=== PATIENT | female | born 1960 | race American Indian/Alaskan Native ===

== ENCOUNTER → 2021-01-31 | Outpatient (CLI) | payer MEDICARE, OTHER ==
[~2021-01-31] MED LIST: ALPR.5 PO; BACL10 PO; CELEBREX PO; GABA100 PO; HYDACE5 PO; HYDACE5325 PO; MODA200 PO; OXYACE10 PO
[2021-01-31 17:48] LABS: BASOPHILS ABSOLUTE AUTO 0.04 K/mm3 (0.00-0.23); BASOPHILS PERCENT AUTO 1 % (0-2); EOSINOPHILS ABSOLUTE AUTO 0.09 K/mm3 (0.00-0.68); EOSINOPHILS PERCENT AUTO 1 % (0-6); Hematocrit 38.4 % (33.0-51.0); Hemoglobin 12.7 g/dL (11.5-16.0); IMMATURE GRAN ABSOLUTE AUTO 0.01 K/mm3 (0.00-0.10); IMMATURE GRAN PERCENT AUTO 0 % (0-1); LYMPHOCYTES ABSOLUTE AUTO 1.58 K/mm3 (0.84-5.20); LYMPHOCYTES PERCENT AUTO 25 % (21-46); MONOCYTES ABSOLUTE AUTO 0.36 K/mm3 (0.16-1.47); MONOCYTES PERCENT AUTO 6 % (4-13); Mean Corpuscular HGB 33.2 pg (26.0-34.0); Mean Corpuscular HGB Conc 33.1 g/dL (31.5-36.5); Mean Corpuscular Volume 100 fL (80-100); Mean Platelet Volume 10.8 fL (9.1-12.4); NEUTROPHILS ABSOLUTE AUTO 4.26 K/mm3 (1.96-9.15); NEUTROPHILS PERCENT AUTO 67 % (41-73); Platelet Count 261 K/mm3 (150-400); RDW Coefficient Variation 12.3 % (11.7-14.2); Red Blood Cell Count 3.83 M/mm3 (3.80-5.20); White Blood Cell Count 6.34 K/mm3 (4.00-11.30)
[2021-01-31 18:48] LABS: Alanine Aminotransfer (ALT/SGP 24 U/L (12-78); Albumin, Blood 3.9 g/dL (3.4-5.0); Albumin/Globulin Ratio 1.1 (0.8-1.8); Alk Phos 77 U/L (50-136); Anion Gap 3 mmol/L (6-16); Aspartate Aminotrans (AST/SGOT 12 U/L (12-37); Bilirubin, Total 0.2 mg/dL (0.1-1.0); Blood Urea Nitrogen 11 mg/dL (8-24); Bun/Creatinine Ratio 18.5 (12.0-20.0); CO2, Blood 29 mmol/L (21-32); Calcium, Blood 8.9 mg/dL (8.5-10.1); Chloride, Blood 108 mmol/L (98-108); Globulin, Blood 3.7 g/dL (2.2-4.0); Glomerular Filtration Rate >60 (60-); Glucose, Blood 119 mg/dL (70-99); Potassium, Blood 3.7 mmol/L (3.5-5.5); Sodium, Blood 140 mmol/L (136-145); Total Protein, Blood 7.6 g/dL (6.4-8.2)
[2021-02-01 11:34] LABS: Cholesterol 198 mg/dL (50-200); HDL Cholesterol 49 mg/dL (>39); LDL/HDL RATIO 2.3; Low Density Lipoprotein Chol 111 mg/dL (<110); Triglycerides 191 mg/dL (30-160); Very Low Density Lipoprot Chol 38 mg/dL (6-32)
== END | disposition home or self-care (01) ==
LOC: LAB SHORT 17:25 → LAB EV 17:25
PROVIDERS: Physician Assistant
DX: E55.9 Vitamin D deficiency, unspecified (principal); E78.5 Hyperlipidemia, unspecified; R53.83 Other fatigue
CPT/HCPCS: 80053; 80061; 82306; 83735; 84443; 85025

== ENCOUNTER 2021-07-09 19:54 | Emergency (ER) | payer MEDICARE, OTHER ==
[~2021-07-09] VITALS: Ht 162.6 cm; Wt 72.6 kg
[2021-07-09 20:48] LABS: BASOPHILS ABSOLUTE AUTO 0.04 K/mm3 (0.00-0.23); BASOPHILS PERCENT AUTO 1 % (0-2); EOSINOPHILS ABSOLUTE AUTO 0.09 K/mm3 (0.00-0.68); EOSINOPHILS PERCENT AUTO 1 % (0-6); Hematocrit 34.6 % (33.0-51.0); Hemoglobin 11.4 g/dL (11.5-16.0); IMMATURE GRAN ABSOLUTE AUTO 0.03 K/mm3 (0.00-0.10); IMMATURE GRAN PERCENT AUTO 0 % (0-1); LYMPHOCYTES ABSOLUTE AUTO 1.64 K/mm3 (0.84-5.20); LYMPHOCYTES PERCENT AUTO 21 % (21-46); MONOCYTES ABSOLUTE AUTO 0.68 K/mm3 (0.16-1.47); MONOCYTES PERCENT AUTO 9 % (4-13); Mean Corpuscular HGB 32.5 pg (26.0-34.0); Mean Corpuscular HGB Conc 32.9 g/dL (31.5-36.5); Mean Corpuscular Volume 99 fL (80-100); Mean Platelet Volume 9.5 fL (9.1-12.4); NEUTROPHILS ABSOLUTE AUTO 5.36 K/mm3 (1.96-9.15); NEUTROPHILS PERCENT AUTO 68 % (41-73); Platelet Count 320 K/mm3 (150-400); RDW Coefficient Variation 14.2 % (11.7-14.2); RDW Standard Deviation 51.6 fL (35.1-46.3); Red Blood Cell Count 3.51 M/mm3 (3.80-5.20); White Blood Cell Count 7.84 K/mm3 (4.00-11.30)
[2021-07-09 21:05] LABS: Alanine Aminotransfer (ALT/SGP 26 U/L (12-78); Albumin/Globulin Ratio 0.7 (0.8-1.8); Alk Phos 72 U/L (50-136); Anion Gap 2 mmol/L (6-16); Aspartate Aminotrans (AST/SGOT 14 U/L (12-37); Bilirubin, Total 0.2 mg/dL (0.1-1.0); Blood Urea Nitrogen 12 mg/dL (8-24); Bun/Creatinine Ratio 19.6 (12.0-20.0); CO2, Blood 30 mmol/L (21-32); Calcium, Blood 9.1 mg/dL (8.5-10.1); Chloride, Blood 109 mmol/L (98-108); Creatinine, Blood 0.61 mg/dL (0.40-1.00); Globulin, Blood 4.6 g/dL (2.2-4.0); Glomerular Filtration Rate >60 (60-); Glucose, Blood 118 mg/dL (70-99); Potassium, Blood 3.8 mmol/L (3.5-5.5); Sodium, Blood 141 mmol/L (136-145); Total Protein, Blood 7.6 g/dL (6.4-8.2)
[2021-07-09] MEDS ORDERED: CEPH500 PO (21:26)
== END 2021-07-09 22:48 | disposition home or self-care (01) ==
LOC: ER 19:54
PROVIDERS: Physician Assistant
DX: L03.115 Cellulitis of right lower limb (principal); L03.116 Cellulitis of left lower limb; G62.9 Polyneuropathy, unspecified; Z79.899 Other long term (current) drug therapy
CPT/HCPCS: 36415; 80053; 83605; 85025; 96365; 96366; 99283-25; J2543

== ENCOUNTER 2021-10-23 18:44 | Inpatient (IN) | payer MEDICARE, OTHER ==
[~2021-10-23] VITALS: Ht 162.6 cm; Wt 71.5 kg
[~2021-10-23 18:44] MED LIST changes: +CEPH500 PO; +Mupirocin22 GM TOP; +SULTRISS PO
[2021-10-23 19:52] LABS: Hematocrit 38.3 % (33.0-51.0); Hemoglobin 13.2 g/dL (11.5-16.0); Mean Corpuscular HGB 32.5 pg (26.0-34.0); Mean Corpuscular HGB Conc 34.5 g/dL (31.5-36.5); Mean Corpuscular Volume 94 fL (80-100); Mean Platelet Volume 10.2 fL (9.1-12.4); Platelet Count 237 K/mm3 (150-400); RDW Coefficient Variation 13.7 % (11.7-14.2); RDW Standard Deviation 47.7 fL (35.1-46.3); Red Blood Cell Count 4.06 M/mm3 (3.80-5.20); White Blood Cell Count 23.49 K/mm3 (4.00-11.30)
[2021-10-23 20:11] LABS: BAND PERCENT MAN 27 % (0-8); BASOPHILS PERCENT MAN 0 % (0-2); EOSINOPHILS PERCENT MAN 0 % (0-6); METAMYELOCYTE ABSOLUTE MAN 0.46 K/mm3 (0.00-0.00); METAMYELOCYTE PERCENT MAN 2 % (0-0); MONOCYTES ABSOLUTE MAN 0.23 K/mm3 (0.16-1.47); MONOCYTES PERCENT MAN 1 % (4-13); NEUTROPHILS ABSOLUTE MAN 22.78 K/mm3 (1.96-9.15); SEG NEUTROPHILS PERCENT MAN 70 % (41-73); TOTAL CELLS COUNTED 100
[2021-10-23 20:12] LABS: Alanine Aminotransfer (ALT/SGP 27 U/L (12-78); Albumin, Blood 3.2 g/dL (3.4-5.0); Albumin/Globulin Ratio 0.7 (0.8-1.8); Alk Phos 65 U/L (50-136); Anion Gap 8 mmol/L (6-16); Aspartate Aminotrans (AST/SGOT 28 U/L (12-37); Bilirubin, Total 0.5 mg/dL (0.1-1.0); Blood Urea Nitrogen 24 mg/dL (8-24); Bun/Creatinine Ratio 36.9 (12.0-20.0); CO2, Blood 27 mmol/L (21-32); Calcium, Blood 9.2 mg/dL (8.5-10.1); Chloride, Blood 97 mmol/L (98-108); Creatinine, Blood 0.65 mg/dL (0.40-1.00); Globulin, Blood 4.9 g/dL (2.2-4.0); Glomerular Filtration Rate >60 (60-); Glucose, Blood 102 mg/dL (70-99); Potassium, Blood 3.8 mmol/L (3.5-5.5); Sodium, Blood 132 mmol/L (136-145); Total Protein, Blood 8.1 g/dL (6.4-8.2)
[2021-10-23 22:36] LABS: Source, Urine Straight Cath
[2021-10-23 22:47] LABS: Bilirubin, Urine Neg (Neg); Blood, Urine 2+ (Neg); Glucose Qualitative, Urine Neg (Neg); Ketones, Urine 1+ (Neg); Leukocyte Esterase, Urine Neg (Neg); Nitrite, Urine Neg (Neg); Protein, Urine 2+ (Neg); Specific Gravity, Urine 1.005 (1.003-1.022); Urobilinogen, Urine NORM (Normal)
[2021-10-23 22:54] LABS: Appearance, Urine Clear (Clear); Color, Urine Yellow (P-Yellow)
[2021-10-23 23:04] LABS: Bacteria Rare /hpf; Red Blood Cells, Urine 0-2 /hpf (0-2); Squamous Epithelial Cells Few /hpf (Few); White Blood Cells, Urine Not Seen /hpf (0-5)
[2021-10-24 04:45] LABS: Hematocrit 30.6 % (33.0-51.0); Hemoglobin 10.6 g/dL (11.5-16.0); Mean Corpuscular HGB 32.6 pg (26.0-34.0); Mean Corpuscular HGB Conc 34.6 g/dL (31.5-36.5); Mean Corpuscular Volume 94 fL (80-100); Mean Platelet Volume 9.9 fL (9.1-12.4); Platelet Count 184 K/mm3 (150-400); RDW Coefficient Variation 13.9 % (11.7-14.2); RDW Standard Deviation 48.2 fL (35.1-46.3); Red Blood Cell Count 3.25 M/mm3 (3.80-5.20); White Blood Cell Count 18.81 K/mm3 (4.00-11.30)
[2021-10-24 05:00] LABS: Anion Gap 5 mmol/L (6-16); Blood Urea Nitrogen 18 mg/dL (8-24); Bun/Creatinine Ratio 32.2 (12.0-20.0); CO2, Blood 25 mmol/L (21-32); Calcium, Blood 8.2 mg/dL (8.5-10.1); Chloride, Blood 107 mmol/L (98-108); Creatinine, Blood 0.56 mg/dL (0.40-1.00); Glomerular Filtration Rate >60 (60-); Glucose, Blood 95 mg/dL (70-99); Potassium, Blood 3.2 mmol/L (3.5-5.5); Sodium, Blood 137 mmol/L (136-145)
[2021-10-24 05:03] LABS: BAND PERCENT MAN 17 % (0-8); BASOPHILS PERCENT MAN 0 % (0-2); EOSINOPHILS PERCENT MAN 0 % (0-6); LYMPHOCYTES ABSOLUTE MAN 0.94 K/mm3 (0.84-5.20); LYMPHOCYTES PERCENT MAN 5 % (21-46); MONOCYTES ABSOLUTE MAN 0.37 K/mm3 (0.16-1.47); MONOCYTES PERCENT MAN 2 % (4-13); NEUTROPHILS ABSOLUTE MAN 17.49 K/mm3 (1.96-9.15); SEG NEUTROPHILS PERCENT MAN 76 % (41-73); TOTAL CELLS COUNTED 100
[2021-10-24 05:44] LABS: U Amphetamine Screen DETECTED; U Barbituate Screen Not Detected; U Benzodiazapine Screen Not Detected; U Buprenorphine Screen Not Detected; U Cannabinoids Screen DETECTED; U Cocaine Screen Not Detected; U Methadone Screen Not Detected; U Methamphetamine Screen DETECTED; U Opiates Screen Not Detected; U Oxycodone Screen Not Detected; U Phencyclidine Screen Not Detected; U Propoxyphene Screen Not Detected
--- NOTE | 2021-10-24 06:27 | NUR ---
SHIFT SUMMARY PT IS LETHARGIC. SHE IS ABLE TO WAKE UP WITH VERBAL STIMULI. VITALS SIGNS ARE STABLE AND PT IS ON ROOM AIR WITH SATS ABOVE 92%. PT DENIES CHEST PAIN/PRESSURE OR SOB. PT REPORTED SORE THROAT UPON AWAKENING AND ORDER WAS OBTAINED. PT HAS NOT HAD ANY ACUTE CHANGES SINCE ARRIVING ON THE FLOOR. PT WOUND IS DOCUMENTED AND THERE ARE PHOTOS IN CHART. FAM IN PLACE AND DRAINING TO GRAVITY. LACTIC IS 2.3 AND IS TRENDING DOWN FROM ED. PT STS SHE IS WHEELCHAIR BOUND. SHE HAS VERY LITTLE MOVEMENT AND FEELING IN LOWER LIMBS. CALL LIGHT IS WITHIN REACH.
--- NOTE | 2021-10-24 15:00 | NUR ---
THIS RN SPOKE AT LENGTH WITH PT'S SISTER CARLOTTA VIA TELEPHONE AFTER OBTAINTING CONSENT FROM PT TO SHARE MEDICAL INFORMATION. CARLOTTA STATES THAT SHE IS VERY CONCERNED FOR HER SISTER'S SAFETY AND LIVING SITUATION. CARLOTTA STATES THAT SHE IS AWARE OF PT USING ILLEGAL DRUGS AND THAT THE PT'S ROOM MATE ALSO USES THEM. CARLOTTA STATES SHE IS CONCERNED THAT THE HOUSE THAT THE PT IS LIVING IN IS NOT SUITABLE FOR THE PATIENT AND HER WHEELCHAIR. CARLOTTA STATES THAT THE PT HAS REFUSED TO MOVE IN THE PAST AND THAT HER PRESENT HEALTH AND HOSPITALIZATION IS DIRECTLY RELATED TO HER LIVING SITUATION AND LACK OF ABILITY TO MAKE APPROPRIATE CHOICES FOR HERSELF. DR STOVALL WILL SPEAK TO PT. SOCIAL SERVICE CONSULT PLACED.
--- NOTE | 2021-10-24 18:07 | NUR ---
PT W C/O BACK PAIN T/O DAY. DR STOVALL AT BEDSIDE TO EVALUATE AND NEW ORDERS RECEIVED. PT PROVIDED WITH HEATING PAD WELL FREQUENT REPOSITIONING. PT'S SISTER INVOLVED IN CARE PLANNING TODAY, SEE PREVIOUS NOTE FOR DETAILS. PT MADE MEDICAL STATUS AND THEN SWITCHED BACK TO PCU STATUS D/T CONCERNS FOR WORSENING SEPSIS R/T RLE REDNESS AND SWELLING. PODIATRY CONSULT COMPLETED BY DR ESPINO, RECOMMENDATIONS FOR OUT PT TREATMENT OF L TOE WOUND AFTER RESOLUTION OF CELULITIS. PALLITATIVE CARE AND SOCIAL SERVICE CONSULTS PLACED D/T CONCERNS OF PT RETURNING TO LIVING SITUATION/DRUG ABUSE. PT DISPLAYING SOME POSSIBLE WITHDRAWL S/SX, DR STOVALL MADE AWARE AND ORDERS RECIEVED. PT RESTING QUIETLY WITH EYES CLOSED AT THIS TIME, CALL LIGHT IN REACH, APPEARS TO BE SLEEPING. WILL CONTINUE TO MONITOR AND REPORT TO MAURIZIO RN.
--- NOTE | 2021-10-25 05:33 | NUR ---
SHIFT SUMMARY NO ACUTE CHANGES THIS SHIFT. VSS. AXO. IN SR. ON RA. FAM PATENT. POWERGLIDE PATENT. PT CONTINUES WITH PAIN TO BACK/R LEG. PAIN MEDS PER EMAR. SWELLING REMAINS TO R LEG. PT HAS HAD STAFF HELP REPOSITION HERSELF MULTIPLE TIMES T/O THE NIGHT. IT HAS BEEN DIFFICULT TO ADJUST PATIENT TO A COMFORTABLE POSITION. PT IS APRECIATIVE OF CARE AND APOLOGIZES ABOUT THE "NEEDINESS". OTHERWISE, PT HAS BEEN ATTEMPTING TO REST OFF AND ON WHEN PAIN/POSITIONING ALLOWS.
[2021-10-25 09:31] LABS: Anion Gap 2 mmol/L (6-16); Blood Urea Nitrogen 20 mg/dL (8-24); Bun/Creatinine Ratio 45.2 (12.0-20.0); CO2, Blood 26 mmol/L (21-32); Chloride, Blood 111 mmol/L (98-108); Creatinine, Blood 0.44 mg/dL (0.40-1.00); Glomerular Filtration Rate >60 (60-); Glucose, Blood 120 mg/dL (70-99); Potassium, Blood 3.2 mmol/L (3.5-5.5); Sodium, Blood 139 mmol/L (136-145)
[2021-10-25 09:33] LABS: Vancomycin, Trough 9.6 ug/mL (5.0-10.0)
[2021-10-25 09:35] LABS: BASOPHILS ABSOLUTE AUTO 0.03 K/mm3 (0.00-0.23); BASOPHILS PERCENT AUTO 0 % (0-2); EOSINOPHILS PERCENT AUTO 0 % (0-6); Hematocrit 28.5 % (33.0-51.0); Hemoglobin 9.4 g/dL (11.5-16.0); IMMATURE GRAN PERCENT AUTO 1 % (0-1); LYMPHOCYTES ABSOLUTE AUTO 0.46 K/mm3 (0.84-5.20); LYMPHOCYTES PERCENT AUTO 3 % (21-46); MONOCYTES ABSOLUTE AUTO 0.28 K/mm3 (0.16-1.47); MONOCYTES PERCENT AUTO 2 % (4-13); Mean Corpuscular HGB 31.9 pg (26.0-34.0); Mean Corpuscular Volume 97 fL (80-100); Mean Platelet Volume 10.5 fL (9.1-12.4); NEUTROPHILS ABSOLUTE AUTO 13.43 K/mm3 (1.96-9.15); NEUTROPHILS PERCENT AUTO 94 % (41-73); Platelet Count 157 K/mm3 (150-400); RDW Coefficient Variation 14.2 % (11.7-14.2); RDW Standard Deviation 50.3 fL (35.1-46.3); Red Blood Cell Count 2.95 M/mm3 (3.80-5.20)
--- NOTE | 2021-10-25 17:53 | NUR ---
PT HAS RESTED QUIETLY FOR MOST OF THE SHIFT, WITH FREQUENT REPOSITIONING FOR COMFORT. EDEMA IN RLE SEEMS TO BE DECREASING, PT HAS HAD A DOSE OF LASIX WITH GOOD URINE OUTPUT. LARGE BILISTERS HAVE DEVELOPED ON RLE, ONE TO THE MEDIAL RLE HAS OPENED AND DRAINED CLEAR SEROSANG FLUID, THE OTHER REMAINS FLUID FILLED AND INTACT. IVF TKO FOR ABX ADMINISTRATION. DR BARAJAS OF IR HAS BEEN CONSULTED AND WILL SEE PT TOMORROW, SHE IS TO BE NPO AFTER MIDNIGHT FOR POSSIBLE PROCEDURE TOMORROW. NO ACUTE EVENTS, PT IS NOW MEDICAL STATUS WITHOUT TELEMETRY. WILL CONTINUE TO MONITOR AND GIVE REPORT TO MAURIZIO LINCOLN.
[2021-10-26 04:59] LABS: BASOPHILS ABSOLUTE AUTO 0.04 K/mm3 (0.00-0.23); BASOPHILS PERCENT AUTO 0 % (0-2); EOSINOPHILS ABSOLUTE AUTO 0.02 K/mm3 (0.00-0.68); EOSINOPHILS PERCENT AUTO 0 % (0-6); Hematocrit 27.6 % (33.0-51.0); Hemoglobin 9.4 g/dL (11.5-16.0); IMMATURE GRAN ABSOLUTE AUTO 0.15 K/mm3 (0.00-0.10); IMMATURE GRAN PERCENT AUTO 1 % (0-1); LYMPHOCYTES ABSOLUTE AUTO 0.86 K/mm3 (0.84-5.20); LYMPHOCYTES PERCENT AUTO 6 % (21-46); MONOCYTES ABSOLUTE AUTO 0.55 K/mm3 (0.16-1.47); MONOCYTES PERCENT AUTO 4 % (4-13); Mean Corpuscular HGB 32.3 pg (26.0-34.0); Mean Corpuscular HGB Conc 34.1 g/dL (31.5-36.5); Mean Corpuscular Volume 95 fL (80-100); NEUTROPHILS ABSOLUTE AUTO 12.34 K/mm3 (1.96-9.15); NEUTROPHILS PERCENT AUTO 88 % (41-73); Platelet Count 174 K/mm3 (150-400); RDW Coefficient Variation 14.3 % (11.7-14.2); Red Blood Cell Count 2.91 M/mm3 (3.80-5.20); White Blood Cell Count 13.96 K/mm3 (4.00-11.30)
--- NOTE | 2021-10-26 05:05 | NUR ---
SHIFT SUMMARY NO ACUTE CHANGES THIS SHIFT. VSS. PT AXO. NOT ON TELE, OCCASIONALLY WITH SOFT BP'S BUT STABLE. PT CONTINUES ON RA. LUNG SOUNDS CLEAR AND UNCHANGED. FAM PATENT. NO CHANGES WITH SKI CONDITION TO LEGS BUT PT IS REPORTING LESS PAIN THAN PREVIOUS SHIFT. PT WAS ABLE TO SLEEP FOR MAJORITY OF SHIFT. PT BEING REPOSITIONED BY STAFF. BUT PT MORE HELPFUL WITH THIS NOW. OTHERWISE, BED ALARM ON. PT PRESENTS MORE MOTIVATED TO GET BETTER. PT THANKFUL FOR CARE PROVIDED.
[2021-10-26 05:23] LABS: Alanine Aminotransfer (ALT/SGP 19 U/L (12-78); Albumin, Blood 1.8 g/dL (3.4-5.0); Albumin/Globulin Ratio 0.5 (0.8-1.8); Alk Phos 49 U/L (50-136); Anion Gap 5 mmol/L (6-16); Aspartate Aminotrans (AST/SGOT 13 U/L (12-37); Bilirubin, Total 0.3 mg/dL (0.1-1.0); Blood Urea Nitrogen 19 mg/dL (8-24); CO2, Blood 26 mmol/L (21-32); Chloride, Blood 112 mmol/L (98-108); Creatinine, Blood 0.54 mg/dL (0.40-1.00); Globulin, Blood 3.6 g/dL (2.2-4.0); Glomerular Filtration Rate >60 (60-); Glucose, Blood 88 mg/dL (70-99); Potassium, Blood 3.1 mmol/L (3.5-5.5); Sodium, Blood 143 mmol/L (136-145); Total Protein, Blood 5.4 g/dL (6.4-8.2)
[2021-10-26 09:45] LABS: Vancomycin, Trough 12.9 ug/mL (5.0-10.0)
--- NOTE | 2021-10-26 16:43 | NUR ---
SHFIT SUMMARY PT A&Ox4; CALM AND COOPERATIVE WITH CARE. PT RESTING IN BED, REPOSITIONED FREQUESNTLY T/O SHIFT. PT REPORTS PAIN TO BACK AND NECK, MEDICATED x2 WITH TORADOL WITH POSITIVE RESULTS. PT REPORTS NAUSEA, MEDICATED x2 WITH ZOFRAN WITH POSITIVE RESULTS. PT DENIES CHEST PAIN/PRESSURE, SOB, AND DIZZINESS. PT BP STABLE, NO TELE ORDER. SPO2 >90% ON RA. NO BM SINCE ADMISSION, BT NORMOACTIVE x4 QUAD; ABD SOFT NONTEND, BACLOFEN PUMP NOTED TO LLQ. RLE RED, WARM, TWO BLISTERED NOTED, BOTH DRAINING SEROUS FLUID. LEFT SECOND TOE NOTED WOUND NOTED. BLE ELEVATED T/O SHIFT. FAM PATENT AND DRAING, THIS AM URINE DARK FRANCO, LIGHTING T/O SHIFT. PT RECEIVING IV ANTIBIOTICS AND LASIX. NOTIFIED DR STOVALL OF POTASSIUM, NEW ORDERS ENTERED. VSS. NO OTHER ACUTE CHAGNES NOTED. WILL CONTINUE TO MONITOR UNTIL REPORT GIVEN TO ONCOMING RN.
[2021-10-27 04:03] LABS: BASOPHILS ABSOLUTE AUTO 0.04 K/mm3 (0.00-0.23); BASOPHILS PERCENT AUTO 0 % (0-2); EOSINOPHILS ABSOLUTE AUTO 0.07 K/mm3 (0.00-0.68); EOSINOPHILS PERCENT AUTO 1 % (0-6); Hematocrit 29.4 % (33.0-51.0); Hemoglobin 9.9 g/dL (11.5-16.0); IMMATURE GRAN ABSOLUTE AUTO 0.21 K/mm3 (0.00-0.10); IMMATURE GRAN PERCENT AUTO 2 % (0-1); LYMPHOCYTES ABSOLUTE AUTO 1.29 K/mm3 (0.84-5.20); LYMPHOCYTES PERCENT AUTO 11 % (21-46); MONOCYTES ABSOLUTE AUTO 0.71 K/mm3 (0.16-1.47); MONOCYTES PERCENT AUTO 6 % (4-13); Mean Corpuscular HGB 32.1 pg (26.0-34.0); Mean Corpuscular HGB Conc 33.7 g/dL (31.5-36.5); Mean Corpuscular Volume 96 fL (80-100); NEUTROPHILS ABSOLUTE AUTO 9.66 K/mm3 (1.96-9.15); NEUTROPHILS PERCENT AUTO 81 % (41-73); Platelet Count 204 K/mm3 (150-400); RDW Coefficient Variation 14.6 % (11.7-14.2); RDW Standard Deviation 51.6 fL (35.1-46.3); Red Blood Cell Count 3.08 M/mm3 (3.80-5.20); White Blood Cell Count 11.98 K/mm3 (4.00-11.30)
[2021-10-27 04:17] LABS: Anion Gap 7 mmol/L (6-16); Blood Urea Nitrogen 22 mg/dL (8-24); Bun/Creatinine Ratio 40.2 (12.0-20.0); CO2, Blood 26 mmol/L (21-32); Calcium, Blood 7.8 mg/dL (8.5-10.1); Chloride, Blood 110 mmol/L (98-108); Creatinine, Blood 0.55 mg/dL (0.40-1.00); Glomerular Filtration Rate >60 (60-); Glucose, Blood 151 mg/dL (70-99); Potassium, Blood 3.2 mmol/L (3.5-5.5); Sodium, Blood 143 mmol/L (136-145)
--- NOTE | 2021-10-27 05:28 | NUR ---
SHIFT SUMMARY NO ACUTE CHANGES THIS SHIFT. VSS. PT HAS REPORTED MUCH LESS PAIN THIS SHIFT VS LAST. HAS NOT REQUIRED NEARLY MUCH REPOSITIONING/PAIN MEDICATION THIS SHFIT VS LAST. R LEG CONTNUES TO SHOW IMPROVEMENT IN SWELLING, REDNESS, PAIN. PT AWAITING REVASC IN AM, WILL BE NPO AT BREAKFAST. OTHERWISE, PT HAS BEEN RESTING IN ROOM T/O SHIFT. POWERGLIDE PATENT. FAM PATENT. BED IN LOW POSITION.
--- NOTE | 2021-10-27 09:06 | NUR ---
Pt had breakfast and AM meds. Pt is now NPO as of 0900.
--- NOTE | 2021-10-27 10:33 | NUR ---
COVID SWAB SENT FOR PRE-PROCEDURE AND TELE PLACED ON PT.
[2021-10-27 11:23] LABS: Influenza A, PCR NEGATIVE (NEGATIVE); Influenza B, PCR NEGATIVE (NEGATIVE); Resp Syncytial Virus, PCR NEGATIVE (NEGATIVE); SARS-Cov-2 (COVID-19) PCR, MMC NEGATIVE (NEGATIVE)
--- NOTE | 2021-10-27 15:42 | NUR ---
Spoke with Dr. Saunders at 1540, pt is still on schedule and they are planning to do revascularization tonight.
--- NOTE | 2021-10-27 17:23 | NUR ---
Evening antibiotics are delayed a little bit due to pt in outside laborer for procedure.
--- NOTE | 2021-10-27 18:15 | NUR ---
Shift note: Pt is A&O, pleasant with cares. VSS on RA. IV abx continued per orders. Acosta in place and draining well. Pt went to laboratory aide at 1600 to have revascularization done in bilateral lower ext. Stent was placed in left prox common illiac and angio seals were placed bilateral groin sites. After pt arrived back from laboratory aide the left groin site looked good, nontender and there was a strong palpable pedal pulse. On the right side there was some swelling and firmness around site. Pt did have swelling in left thigh prior to procedure from infection, will keep a close watch of right site. Pt comfortable and understands precautions of needing to lay flat. A&O after procedure.
--- NOTE | 2021-10-28 10:00 | NUR ---
Skin assessment: Pt has multiple wounds. Right lower extremity has redness and swelling up to thigh. Calf is very pink/red in color. Left leg also has redness and swelling, but a lot less than right side. Left second is darkened. I will take new photos today for chart. Pt has bilateral groin sites, both are soft nontender. Abdomen has dried scabs and red spots that look like they are healing. Bottom/ coccyx is reddened and darker in spots, it is blanchable. Q2hr turns and frequent positioning completed. Legs elevated and draining wound on right legs is weeping onto chucks, frequently changed.
[2021-10-28 13:02] LABS: BASOPHILS ABSOLUTE AUTO 0.05 K/mm3 (0.00-0.23); BASOPHILS PERCENT AUTO 1 % (0-2); EOSINOPHILS ABSOLUTE AUTO 0.12 K/mm3 (0.00-0.68); EOSINOPHILS PERCENT AUTO 1 % (0-6); Hematocrit 33.6 % (33.0-51.0); Hemoglobin 11.3 g/dL (11.5-16.0); IMMATURE GRAN ABSOLUTE AUTO 0.35 K/mm3 (0.00-0.10); IMMATURE GRAN PERCENT AUTO 3 % (0-1); LYMPHOCYTES ABSOLUTE AUTO 1.67 K/mm3 (0.84-5.20); LYMPHOCYTES PERCENT AUTO 16 % (21-46); MONOCYTES ABSOLUTE AUTO 0.74 K/mm3 (0.16-1.47); MONOCYTES PERCENT AUTO 7 % (4-13); Mean Corpuscular HGB Conc 33.6 g/dL (31.5-36.5); Mean Corpuscular Volume 95 fL (80-100); Mean Platelet Volume 9.6 fL (9.1-12.4); NEUTROPHILS ABSOLUTE AUTO 7.77 K/mm3 (1.96-9.15); NEUTROPHILS PERCENT AUTO 73 % (41-73); Platelet Count 301 K/mm3 (150-400); RDW Coefficient Variation 14.3 % (11.7-14.2); RDW Standard Deviation 49.9 fL (35.1-46.3); Red Blood Cell Count 3.53 M/mm3 (3.80-5.20)
[2021-10-28 13:10] LABS: Albumin, Blood 2.1 g/dL (3.4-5.0); Anion Gap 3 mmol/L (6-16); Blood Urea Nitrogen 21 mg/dL (8-24); Bun/Creatinine Ratio 40.2 (12.0-20.0); CO2, Blood 32 mmol/L (21-32); Calcium, Blood 8.1 mg/dL (8.5-10.1); Chloride, Blood 103 mmol/L (98-108); Creatinine, Blood 0.52 mg/dL (0.40-1.00); Glomerular Filtration Rate >60 (60-); Glucose, Blood 107 mg/dL (70-99); Phosphorus, Blood 2.5 mg/dL (2.5-4.9); Potassium, Blood 3.7 mmol/L (3.5-5.5); Sodium, Blood 138 mmol/L (136-145)
--- NOTE | 2021-10-28 15:25 | NUR ---
Met with pt in her room at approximately 1500 today. Her sister Ashley was at bedside when I arrived to assess. Noted pt has advancing MS, has been living in a 2 story home with a roommate, but as her MS is advancing, she is becoming less able to care for herself. She developed a sore on her Left foot 2nd toe from being unable to transfer herself. She has also begun wearing briefs more often, as even with basic exercize, she is unable to take herself to the toilet. Both pt and sister realize pt is no longer safe in her home, as it took the R leg cellulitis and L foot toe pressure wound to drive the point home that she is failing. Per OT note today, pt has multiple reasons she is unable /unsafe to live alone (see page 5 impairments via OT). The patient is aware she needs to make changes in order to be successful, and is prepared to begin making those changes. However, she will require at least some time to prepare, as she was unaware there was any plan in place today to discharge today. She has not yet been evaluated by PT. Given all these factors, pt is very high risk for readmission, and it is unsafe to d/c home alone at this time. home along at this time.
[2021-10-28] MEDS ORDERED: GABA400 PO (15:59)
--- NOTE | 2021-10-28 16:45 | NUR ---
Shift note: Pt is A&O, pleasant with cares. Anxious at times, prn meds given per NOV. VSS on RA. IV abx continued per orders. Pt has powerglide in RUE. Pt tolerating diet but has been reporting nausea today, prn zofran given per orders. Pt reports no BM since admission, prn stool softners given. Acosta in place and draining well, MD said to leave in place for now until PT/OT assesses to see if pt can move to commode. Baseline pt uses electric wheelchair. PT and OT saw pt today, see notes. PT reported a lot of spasticity in lower ext, pt uses baclofen pump baseline and has prn baclofen. Pt has been receiving prn toradol and tylenol here, will contact MD to see if we can get a prn for muscle spasms. Ulcer on left second toe, darkened toe. Multiple skin issues on bilateral lower extremities. Swelling in right lef and a lot of redness. Bilateral groin sites are soft nontender. Weeping sores on right lower calf. Pt sister met with , gearcase assembler and palliative team today. Pt sister is trying to get some more home services set up for the patient.
--- NOTE | 2021-10-29 05:03 | NUR ---
ORTHOPAEDIC NURSE SUMMARY PT IS AXO X4 AND USES HER CALL LIGHT TO MAKE HER NEEDS KNOWN. PT HAD NO MAJOR CHANGES THIS SHIFT SHE SLEPT COMFORTABLY FOR MOST OF THE NIGHT. VSS AND AFEBRILE. O2 SATS >92% ON RM AIR. PT REPORTING MODERATE PAIN IN BLE THIS SHIFT, MEDICATED PER EMAR. PT CONTINUES TO HAVE GOOD PO INTAKE DESPITE HER REPORTING INTERMITTANT THROUGHOUT THE SHIFT. WILL REORT TO ONCOMING RN.
--- NOTE | 2021-10-29 14:16 | NUR ---
Spoke to pt and her sister Ashley today, both are in good spirits, working on plan for salvage determiner. I gave them the info for [employer] to get Adult Foster Home list in [facility], and apparently the [employer] will assist with paying for this. No other immediate needs. Will remain available.
--- NOTE | 2021-10-29 18:07 | NUR ---
CARE PROVIDED BY SECOND YEAR STUDENT LATONIA WALLS SUPERVISED AND ASSESMENTS REVIEWED BY THIS RN.
--- NOTE | 2021-10-29 18:15 | NUR ---
SHIFT SUMMARY PT ALERT AND ORIENTED X4, PLEASANT AND COOPERATIVE; VSS THROUGHOUT SHIFT; NEEDS ASSISTANCE WHEN AMBULATING (BEDBOUND); PT DENIED PAIN WHEN ASKED, BUT DID RECEIVED ACETAMINOPHEN AFTER WORKING WITH PT; RIGHT FOOT DROP NOTED; CELLULITIS ON RLE REDDENED BELOW THE KNEE TO ANKEL, BUT IS IMPROVING BASED ON DEMARCATION LINE ON UPPER RIGHT THIGH; POWERGLIDE IN UPPER RIGHT ARM PATIENT AND RUNNING NS TKO; REPOSITIONED PT Q2, PHYSICAL THERAPY/OT WAS ABLE TO DANGLE THE PT; PT HAD INERMITENT NAUSEA, TREATED PER EMAR. WILL CONTINUE TO MONITOR AND LEAVE UNTIL END OF SHIFT
--- NOTE | 2021-10-30 05:24 | NUR ---
SUMMARY NO ACUTE CHANGES NOTED THROUGH THE NIGHT. PT HAS BEEN ABLE TO SLEEP WITH NO PROBLEMS. ABX INFUSED PER EMAR, REPOSITIONED PRN, VSS, TOLERATING SM AMOUNTS OF PO INTAKE. PT STATES SHE FEELS LIKE SHE NEEDS TO HAVE A BM. CALL LIGHT IS IN REACH, WILL CONTINUE TO MONITOR AND REPORT TO DAY SHIFT RN.
--- NOTE | 2021-10-30 07:53 | NUR ---
ASSUMPTION OF CARE Pt is a/o x 4. She has no complaints but does report that it has been several days since her last BM. She drank a prune juice. Her Right Lower leg is swollen and red and weeping. Her heels are floated and foam heel protectors are in place. Her mcdaniels is patent with yellow urine output. She is able to make her needs known and calls for help when needed.
--- NOTE | 2021-10-30 16:18 | NUR ---
SHIFT SUMMARY Pt is a/o x 4 with no c/o pain. She did report this morning that she had not had a bowel movement in the last few days and was given her bowel meds as ordered. Later in the morning a suppository was ordered and she was able to have a BM. Redness to her RLE is ongoing but she reports that today is the best it has felt. The area was cleansed and left TOOL CHECKER and both feet were placed in pressure off loading boots. The Pt reported great relief with the new boots. Her mcdaniels is patent with yellow urine output. She has been able to turn and reposition with assist. Her ABO have been infusing as ordered throughout the day. She has been updating her family via text. She is able to make her needs known and has her call light and personal items within reach.
--- NOTE | 2021-10-31 05:47 | NUR ---
SHIFT SUMMARY PATIENT IS MEDICAL NO TELE STATUS. PATIENT ALERT AND ORIENTED x4. VSS. PATIENT REMAINS ON RA. REPOSITIONED Q2 AND PRN WHEN PATIENT REQUESTED WITH HER ASSISTANCE. MEDICATED PER EMAR FOR PAIN AND NAUSEA. PRESSURE OFF LOADING BOOTS IN PLACE, PATIENT STATES HER RLE LOOKS MUCH BETTER THAN WHEN SHE FIRST CAME IN. FAM IN PLACE DRANING YELLOW URINE. PATIENT ABLE TO MAKE NEEDS KNOWN TO STAFF. NO OTHER SIGNIFICANT CHANGES THIS SHIFT. WILL REPORT TO DAY SHIFT RN.
--- NOTE | 2021-10-31 07:34 | NUR ---
ASSUMPTION OF CARE Pt is a/o x 4 resting in bed. She has no complaints. She is talking on the phone with her friends. Powerglide is patent. Acosta is in place with yellow urine output. Pressure offloading boots are in place. She has her call light in reach and is able to make her needs known.
[2021-10-31 09:37] LABS: Creatinine, Blood 0.49 mg/dL (0.40-1.00); Vancomycin, Trough 14.1 ug/mL (5.0-10.0)
--- NOTE | 2021-10-31 13:15 | NUR ---
SUMMARY OF CARE Pt is a/o x 4 with very pleasant with no complaints. She continues on the IV ABO as ordered. Her cellulities to her RLE continues to improve from yesterday. The foam boots are in place to help relieve pressure while in bed. Lotion was applied to her legs to help with the dryness and she continues with Asa as ordered for wound healing. She worked with physical therapy today. Her mcdaniels is patent with yellow urine output. She in very pleasant and involved in her care. At this point she would rather return home than go to SNF and she discussed this with the Doctor. She is medical status and has a bed assigned upstairs. As soon as report is called we will move her upstairs and she is agreeable to this plan. She has been updating her family.
--- NOTE | 2021-10-31 16:22 | NUR ---
SHIFT SUMMARY PCU TX THIS AFTERNOON. A&O, PLEASANT AND CO-OP. ADMITTED FOR SEPSIS R/T CELLULITIS BLE'S. RECEIVED REPORT FROM EMMY LINCOLN, CELLULITIS CURRENTLY ONLY IN RLE. PT WITH HX OF MS; UNABLE TO MOVE HER LEGS. FAM TO GRAVITY, PATENT. PER REPORT, PT REQUESTING FAM TO BE LEFT IN AT D/C. PER REPORT, PT TO NOW D/C TO HOME WITH H/H AND HER SISTER VESSEL MANAGER. PER REPORT, PT TO CONTINUE ABX AFTER D/C FOR OSTEOMYELITIS IN L SECOND TOE. PT RESTING QUIETLY AT THIS TIME, WATCHING TV WITH IV ABX INFUSING PER EMAR. DENIED FURTHER NEEDS. CALL LT IN REACH.
--- NOTE | 2021-11-01 03:25 | NUR ---
SHIFT SUMMARY PATIENT HAD NO ACUTE CHANGES OBSERVED. AXOX 4 AND BEDBOUND WITH HX OF M.S. AND USES BEDPAN. POWERGLIDE CHRISTY INTACT. IV ABX INFUSED. VSS/AFEBRILE. DENIES PAIN, SOB, AND N/V. PLEASANT AND COOPERATIVE. SLEPT T/O SHIFT. CALL LIGHT IN REACH. BED IN LOWEST POSITION. WILL CONTINUE TO MONITOR UNTIL DAY SHIFT NURSE ASSUMES CARE.
[2021-11-01 05:39] LABS: Albumin, Blood 2.3 g/dL (3.4-5.0); Anion Gap 4 mmol/L (6-16); Blood Urea Nitrogen 16 mg/dL (8-24); Bun/Creatinine Ratio 29.1 (12.0-20.0); CO2, Blood 29 mmol/L (21-32); Calcium, Blood 8.4 mg/dL (8.5-10.1); Chloride, Blood 107 mmol/L (98-108); Creatinine, Blood 0.55 mg/dL (0.40-1.00); Glomerular Filtration Rate >60 (60-); Glucose, Blood 147 mg/dL (70-99); Phosphorus, Blood 2.6 mg/dL (2.5-4.9); Potassium, Blood 3.8 mmol/L (3.5-5.5); Sodium, Blood 140 mmol/L (136-145)
--- NOTE | 2021-11-01 08:00 | NUR ---
Pt laying in bed awake a/ox3, pleasant and cooperative with care, follows commands well, denies pain at this time, state she slept ok, lungs are clear t/o, resp even and unlabored, no cough noted, hrr, edema going down as b/l lower ext are wrinkled, power glide to karen site is clear and patent, btx4, abd flat soft nontender, voids via bedpan or some incont in attends, skin has some bruising and rle is vey red with opened blisters to the lateral aspect, b/l access sites from revasc, sites are clear and soft, is able to assist with turning can move arms, can wiggle right foot, but not left, vicky, call light in reach.
--- NOTE | 2021-11-01 19:04 | NUR ---
pt has had an uneventful day, did become upset when she was incont, this am, so placed a purwick for comfort, she had a bedbath, linen change, wanting to go home, call light in reach.
--- NOTE | 2021-11-02 06:27 | NUR ---
Patient is alert and oriented x4 bed bound hx of MS. Patient is pleasant and is able to let her needs be known. She complains of pain in her right leg. right leg cellulitis is dry, it is red and +1 swelling. she has a hard time moving both her legs. q2 repositioning occured. patient has a picc, dressing is clean dry and intact. she was feeling anxious this morning an wanted to go home, she feels tired in the bed. reassured her the importance of staying at the hospitl to continue her antibiotic treatment. patient agreeable linen change completed, AM care provided call light within reach.
[2021-11-02] MEDS ORDERED: JUVEN PACKET1 EAC3 PO (11:44)
[2021-11-02] MEDS ORDERED: Acetaminophen650 M1 PO (11:44)
[2021-11-02] MEDS ORDERED: ATOR40TA PO (11:45)
[2021-11-02] MEDS ORDERED: ASPI81CH PO (11:45)
[2021-11-02] MEDS ORDERED: DOCUZEN 8.6-501 EACH PO (11:46)
[2021-11-02] MEDS ORDERED: VISBIOME 112.51 EACH PO (11:47)
[2021-11-02] MEDS ORDERED: CLOP75 PO (11:47)
--- NOTE | 2021-11-02 13:12 | NUR ---
DISCHARGE PATIENT TRASNPORTED VIA WHEELCHAIR TO PRIVATE VEHICLE. DISCHARGE INSTRUCTIONS EXPLAINED TO PATIENT. PATIENT STATED UNDERSTANDING. PACKET SENT WITH PATIENT. POWERGLIDE REMOVED WITHOUT DIFFICULTY. BELONGINGS SENT WITH PATIENT. MEDICATIONS FAXED TO PREFERRED PHARMACY. FOLLOW UP APPOINTMENT SCHEDULED.
== END 2021-11-02 13:03 | disposition home or self-care (01) | DRG 854 ==
LOC: ER 18:44 → PCU 22:50 → MEDS 10-31 13:52 → ENPENDDIS 11-02 11:40 → MEDS 11-02 13:03
PROVIDERS: Emergency Medicine; Internal Medicine; ADMIT Family Medicine
PROC: 047D3DZ Dilation of Left Common Iliac Artery with Intraluminal Device, Percutaneous Approach (ICD-10-PCS; principal; 2021-10-27)
PROC: 047L3ZZ Dilation of Left Femoral Artery, Percutaneous Approach (ICD-10-PCS; 2021-10-27)
PROC: B41G1ZZ Fluoroscopy of Left Lower Extremity Arteries using Low Osmolar Contrast (ICD-10-PCS; 2021-10-27)
PROC: B41F1ZZ Fluoroscopy of Right Lower Extremity Arteries using Low Osmolar Contrast (ICD-10-PCS; 2021-10-27)
DX: A41.9 Sepsis, unspecified organism (principal); M86.8X7 Other osteomyelitis, ankle and foot; E87.1 Hypo-osmolality and hyponatremia; E87.2 Acidosis; L03.115 Cellulitis of right lower limb; G35 Multiple sclerosis; Z20.822 Contact with and (suspected) exposure to COVID-19; R65.20 Severe sepsis without septic shock; L97.529 Non-pressure chronic ulcer of other part of left foot with unspecified severity; E87.6 Hypokalemia; I70.245 Atherosclerosis of native arteries of left leg with ulceration of other part of foot; F15.10 Other stimulant abuse, uncomplicated; G62.9 Polyneuropathy, unspecified; F17.210 Nicotine dependence, cigarettes, uncomplicated; Z90.710 Acquired absence of both cervix and uterus; Z79.899 Other long term (current) drug therapy
CPT/HCPCS: 0241U; 36415; 37221; 37224; 51702; 73620; 73701; 75625; 75716; 75774; 76937; 80048; 80053; 80069; 80202; 81001; 82565; 83605; 83880; 85025; 87040; 87086; 93005; 93010; 93922; 93971; 96365; 96375; 97110; 97112; 97162; 97166; 97530; 97535; 99152; 99153; 99285-25; A9270; C1725; C1751; C1760; C1769; C1876; C1894; J0692; J1644; J1650; J1885; J1940; J2250; J2405; J2543; J3010; J3370; J3480; J7030; J7050; J7120; Q9967

== ENCOUNTER 2024-05-11 07:28 | Emergency (ER) | payer MEDICARE, OTHER ==
[~2024-05-11] VITALS: Ht 162.6 cm; Wt 59.0 kg
[~2024-05-11 07:28] MED LIST changes: +ASPI81CH PO; +ATOR40TA PO; +Acetaminophen650 M1 PO; +CLOP75 PO; +DOCUZEN 8.6-501 EACH PO; +GABA400 PO; +JUVEN PACKET1 EAC3 PO; +VISBIOME 112.51 EACH PO
[2024-05-11] MEDS ORDERED: Morphine Sulfate 4 MG/1 ML Injection IV ONE ×2 (07:45→09:45)
[2024-05-11] MEDS ORDERED: BUPR150ER PO (08:03)
[2024-05-11] MEDS ORDERED: VITAMIN D31000 UNI1 PO (08:04)
[2024-05-11] MEDS ORDERED: Furosemide40 MG PO (08:04)
[2024-05-11] MEDS ORDERED: GABA800 PO (08:05)
[2024-05-11] MEDS ORDERED: CEPH250A PO (08:05)
[2024-05-11] MEDS ORDERED: ACET500 PO (08:06)
[2024-05-11] MEDS ORDERED: HYDHCL25 PO (08:07)
[2024-05-11] MEDS ORDERED: OXYC5 PO (11:47)
[2024-05-11 12:35] VITALS: BP 125/89
[2024-05-11] MEDS ORDERED: OxyCODONE HCL 5 MG TAB PO ONE (12:35)
== END 2024-05-11 14:05 | disposition home or self-care (01) ==
LOC: ER 07:28
DX: S72.422A Displaced fracture of lateral condyle of left femur, initial encounter for closed fracture (principal); S72.002A Fracture of unspecified part of neck of left femur, initial encounter for closed fracture; E78.5 Hyperlipidemia, unspecified; F17.210 Nicotine dependence, cigarettes, uncomplicated; W10.1XXA Fall (on)(from) sidewalk curb, initial encounter
CPT/HCPCS: 73502; 73564; 96374; 96376; 99283-25; A9270; J2270

== ENCOUNTER 2024-05-11 22:13 | Emergency (ER) | payer MEDICARE, OTHER ==
[~2024-05-11] VITALS: Ht 162.6 cm; Wt 59.0 kg
[~2024-05-11 22:13] MED LIST changes: +ACET500 PO; +BUPR150ER PO; +CEPH250A PO; +Furosemide40 MG PO; +GABA800 PO; +HYDHCL25 PO; +OXYC5 PO; +VITAMIN D31000 UNI1 PO
[2024-05-11] MEDS ORDERED: RX Prepack 6 Tabs Oxycodone 5mg UD ONE (22:30)
[2024-05-11 22:46] VITALS: BP 110/85
== END 2024-05-11 23:44 | disposition home or self-care (01) ==
LOC: ER 22:13
DX: Z76.0 Encounter for issue of repeat prescription (principal); S72.92XD Unspecified fracture of left femur, subsequent encounter for closed fracture with routine healing; Z79.899 Other long term (current) drug therapy; E78.5 Hyperlipidemia, unspecified; F17.210 Nicotine dependence, cigarettes, uncomplicated
CPT/HCPCS: 99283; A9270

== ENCOUNTER 2024-05-13 16:11 | Inpatient (IN) | payer MEDICARE, OTHER ==
[~2024-05-13] VITALS: Ht 162.6 cm; Wt 66.7 kg
[2024-05-13] MEDS ORDERED: HYDROmorphone HCl/Pf 1MG SYR IV ONE (17:40)
[2024-05-13 18:52] LABS: BASOPHILS ABSOLUTE AUTO 0.03 K/mm3 (0.00-0.23); BASOPHILS PERCENT AUTO 0 % (0-2); EOSINOPHILS ABSOLUTE AUTO 0.02 K/mm3 (0.00-0.68); EOSINOPHILS PERCENT AUTO 0 % (0-6); Hematocrit 30.6 % (33.0-51.0); Hemoglobin 10.2 g/dL (11.5-16.0); IMMATURE GRAN ABSOLUTE AUTO 0.04 K/mm3 (0.00-0.10); IMMATURE GRAN PERCENT AUTO 0 % (0-1); LYMPHOCYTES PERCENT AUTO 8 % (21-46); MONOCYTES ABSOLUTE AUTO 0.63 K/mm3 (0.16-1.47); MONOCYTES PERCENT AUTO 6 % (4-13); Mean Corpuscular HGB 33.1 pg (26.0-34.0); Mean Corpuscular HGB Conc 33.3 g/dL (31.5-36.5); Mean Corpuscular Volume 99 fL (80-100); Mean Platelet Volume 9.9 fL (9.1-12.4); NEUTROPHILS ABSOLUTE AUTO 9.12 K/mm3 (1.96-9.15); NEUTROPHILS PERCENT AUTO 86 % (41-73); Platelet Count 204 K/mm3 (150-400); RDW Coefficient Variation 12.5 % (11.7-14.2); RDW Standard Deviation 45.2 fL (35.1-46.3); Red Blood Cell Count 3.08 M/mm3 (3.80-5.20); White Blood Cell Count 10.64 K/mm3 (4.00-11.30)
[2024-05-13 19:16] LABS: Albumin, Blood 3.2 g/dL (3.4-5.0); Albumin/Globulin Ratio 0.8 (0.8-1.8); Bilirubin, Total 0.5 mg/dL (0.1-1.0); Calcium, Blood 8.7 mg/dL (8.5-10.1); Creatinine, Blood 0.45 mg/dL (0.40-1.00); Potassium, Blood 3.2 mmol/L (3.5-5.5); Total Protein, Blood 7.2 g/dL (6.4-8.2)
[2024-05-13] MEDS ORDERED: DIAZ10 PO (19:32)
[2024-05-13] MEDS ORDERED: DIPATR PO (19:32)
[2024-05-13] MEDS ORDERED: FentaNYL Citrate 50 MCG/ML 2 ML Injection IV PRN (19:35)
[2024-05-13] MEDS ORDERED: Acetaminophen 325 MG TABLET PO PRN (19:35)
[2024-05-13] MEDS ORDERED: Metoclopramide HCl 5MG / ML 2ML Vial IV PRN (19:35)
[2024-05-13] MEDS ORDERED: NS 1,000 ML IV SCH (19:35)
[2024-05-13] MEDS ORDERED: Ondansetron HCl 2 MG / ML 2ML Vial IV PRN (19:40)
[2024-05-13] MEDS ORDERED: OxyCODONE HCL 5 MG TAB PO PRN (19:40)
[2024-05-13] MEDS ORDERED: Potassium Chloride 20 MEQ TabCR PO ONE (20:00)
[2024-05-13] MEDS ORDERED: Ketorolac Tromethamine 15mg Vial IV PRN (20:10)
[2024-05-13] MEDS ORDERED: Gabapentin 400 MG Cap PO SCH (21:00)
[2024-05-13 23:03] VITALS: BP 127/85
--- NOTE | 2024-05-13 23:06 | NUR ---
PATIENT IS A NEW ADMIT FROM THE ED. AXOX 4 AND W/C BOUND WITH HX M.S. FIVE PERSON TRANSFER FROM [facility] TO BED WITH LEFT FEMUR FX. ON ROOM AIR. DENIES CHEST PAIN AND SOB. REPORTED LEFT LEG PAIN AND OXYCODONE 5 MG GIVEN IN ED PRIOR TO ADMIT. ORIENTED TO ROOM AND CALL LIGHT SYSTEM. REPORTS SHE WAS IN ED ON FRIDAY 05/11 AND DENIED SURGICAL INTERVENTION. IMAGING IN ROOM FOR 3 VIEW LEFT KNEE. PUREWICK PLACED. REPORTED NAUSEOUS AND IV ZOFRAN GIVEN PER EMAR AND IV FENTANYL 50 MCG FOR PAIN. REPORTS LIVES AT [facility]. RESTING IN BED. TM.
[2024-05-14] VITALS (16 sets, daily range): BP systolic 88–143; BP diastolic 54–93
--- NOTE | 2024-05-14 04:07 | NUR ---
SHIFT SUMMARY PATIENT HAD NO ACUTE CHANGES. AXOX 4, BEDREST, W/C BOUND AND NPO. ALATNA. DENIES CHEST PAIN AND SOB. REPORTED NAUSEOUS X ONE AND IV ZOFRAN GIVEN. REPORTED LEFT LEG PAIN X 2 AND IV FENTANYL 50 MCG AND OXYCODONE 5 [address] AL[address]ATED. PUREWICK IN PLACE. PIV INTACT. NS INFUSING @ 100 mL/HR. VSS/AFEBRILE. REPORTS SHE HAS IMPLANTED BACLOFEN PUMP LLQ. SLEPT ON/OFF. CALL LIGHT IN REACH. BED IN LOWEST POSITION. WILL CONTINUE TO MONITOR UNTIL DAY SHIFT NURSE ASSUMES CARE.
[2024-05-14 05:06] LABS: International Normalized Ratio 0.97; Prothrombin Time Results 10.4 Sec (9.7-11.5)
[2024-05-14 05:23] LABS: Bun/Creatinine Ratio 16.4 (12.0-20.0); Calcium, Blood 8.6 mg/dL (8.5-10.1); Creatinine, Blood 0.49 mg/dL (0.40-1.00); Magnesium, Blood 2.2 mg/dL (1.6-2.4); Potassium, Blood 4.2 mmol/L (3.5-5.5)
--- NOTE | 2024-05-14 05:57 | NUR ---
URINE TOX SCREEN COLLECTED AND SENT TO LAB.
[2024-05-14 06:35] LABS: U Amphetamine Screen Not Detected; U Barbituate Screen Not Detected; U Benzodiazapine Screen Not Detected; U Cocaine Screen Not Detected; U Methadone Screen Not Detected; U Methamphetamine Screen Not Detected; U Opiates Screen DETECTED
[2024-05-14 06:36] LABS: U Buprenorphine Screen Not Detected; U Cannabinoids Screen DETECTED; U Oxycodone Screen DETECTED; U Phencyclidine Screen Not Detected
[2024-05-14] MEDS ORDERED: Etomidate 2MG / ML 10ML Vial ONE (09:59)
[2024-05-14] MEDS ORDERED: Albumin (Human) 12.5gm/250ml 250 ML IV ONE (09:59)
[2024-05-14] MEDS ORDERED: Lactated Ringer's 1,000 ML IV SCH (10:00)
[2024-05-14] MEDS ORDERED: Chlorhexidine Mouth Care 15 ML UDC MT SCH (10:00)
[2024-05-14] MEDS ORDERED: NS IV SCH (10:00)
[2024-05-14] MEDS ORDERED: TRANEXAMIC ACID IV SCH (10:00)
[2024-05-14] MEDS ORDERED: CeFAZolin Sodium 2,000 MG in NS 100 ML IV SCH (10:00)
[2024-05-14] MEDS ORDERED: Midazolam HCl 1MG / ML 2ML Vial ONE (10:08)
[2024-05-14] MEDS ORDERED: Bupivacaine 0.5% HCl 5 MG/ML 30MLVIAL ONE (10:11)
[2024-05-14] MEDS ORDERED: FentaNYL Citrate 50 MCG/ML 2 ML Injection ONE ×3 (10:17→11:56)
[2024-05-14] MEDS ORDERED: propofoL 20 ML IV ONE (10:25)
[2024-05-14] MEDS ORDERED: Tranexamic Acid 100 ML IV SCH (10:30)
--- NOTE | 2024-05-14 10:39 | NUR ---
PT TO PACU VIA BED FROM [facility] FOR PREOP CARE AT 1000. PT NERVOUS BUT COOPERATIVE. AFEBRILE/VSS. SURGICAL HAT/PAS SLEEVES/BP CUFF IN PLACE. ARNAUD MCKNIGHT CRNA AT BED SIDE. WARM BLANKETS PLACED. NO COMPLAINTS AT THIS TIME.
--- NOTE | 2024-05-14 10:41 | NUR ---
PT TO OR4 VIA BED AT 1020 IN STABLE CONDITION.
--- NOTE | 2024-05-14 10:58 | NUR ---
05/14/24 1058 Alis Guevara 2GM IV GIVEN AT 1020 BY REEFER ENGINEER AND PULLED FROM THEIR PYXIS.
[2024-05-14] MEDS ORDERED: EpiNEPhrine 1 MG/1 ML 1ML Vial ONE ×2 (10:59→11:02)
[2024-05-14] MEDS ORDERED: Dexamethasone Sod Phos 10 MG/ML 1ML VIAL ONE (11:02)
[2024-05-14] MEDS ORDERED: Ondansetron HCl 2 MG / ML 2ML Vial ONE (11:02)
[2024-05-14] MEDS ORDERED: Lidocaine HCl 2% 20 ML MDV ONE (11:02)
[2024-05-14] MEDS ORDERED: CeFAZolin Sodium 1000 mg Vial ONE (11:02)
[2024-05-14] MEDS ORDERED: HYDROmorphone HCl/Pf 1MG SYR ONE (11:19)
[2024-05-14] MEDS ORDERED: Phenylephrine HCl 10mg/ml 1 ml Vial ONE (11:19)
[2024-05-14] MEDS ORDERED: ePHEDrine Sulfate 50 MG/ML 1ML Injection ONE (11:31)
[2024-05-14] MEDS ORDERED: Prochlorperazine Edisylate 10 mg Vial ONE (11:42)
[2024-05-14] MEDS ORDERED: Droperidol 5 mg/2 ml Vial ONE (11:52)
--- NOTE | 2024-05-14 17:41 | NUR ---
REPORT RECEIVED VERIFIED A/O VSS PT ISNT SURE ABOUT SX TODAY AND WOULD LIKE TO SPEAK WITH MD. I LET SURGICAL FLOOR KNOW. 929 DR SANDS IN WITH PT, PT HAS CHOSEN TO HAVE SX. 1000 PT TAKEN FOR PROCEDURE. 1200 PT RETURNED A/O AND MEDICATED FOR PAIN. DRESSING TO LEFT HIP INTACT WITH MINIMAL SPOTTING OF BLOOD. PT COMFORTABLY LAYING IN BED, WOULD LIKE TO STAY IN FRONT OF PAIN SO I HAVE BEEN MEDICATING NEEDED
[2024-05-15 02:45] VITALS: BP 144/91
--- NOTE | 2024-05-15 04:19 | NUR ---
ASSEMBLY MACHINE FEEDER NOTE PATIENT IS A&OX4, SLIGHTLY ELEVATED BP, ON ROOM AIR, NO TELE. PATIENT COMPLAINED OF SEVERE PAIN TO L HIP AND KNEE, 9 OUT OF 10. PRN PAIN MEDS WERE GIVEN THROUGHOUT THE SHIFT. DRESSING TO SURGICAL WOUND IS INTACT. PATIENT HAS A HISTORY OF MS, FLACCID TO THE LEFT SIDE, PATIENT CALLS APPROPRIATELY AND IS ABLE TO MAKE NEEDS KNOWN. PATIENT IS CURRENTLY ON BEDREST BUT USES SLIDING BOARD AT HOME TO TRANSFER. PATIENT HAS AN EXTERNAL CATHETER IN PLACE THAT IS WORKING WELL. PLAN FOR POSSIBLE REHAB WHEN D/C FROM THE HOSPITAL.
[2024-05-15 04:42] LABS: BASOPHILS ABSOLUTE AUTO 0.02 K/mm3 (0.00-0.23); BASOPHILS PERCENT AUTO 0 % (0-2); EOSINOPHILS ABSOLUTE AUTO 0.02 K/mm3 (0.00-0.68); EOSINOPHILS PERCENT AUTO 0 % (0-6); Hematocrit 22.3 % (33.0-51.0); Hemoglobin 7.4 g/dL (11.5-16.0); IMMATURE GRAN ABSOLUTE AUTO 0.02 K/mm3 (0.00-0.10); IMMATURE GRAN PERCENT AUTO 0 % (0-1); LYMPHOCYTES ABSOLUTE AUTO 1.51 K/mm3 (0.84-5.20); LYMPHOCYTES PERCENT AUTO 24 % (21-46); MONOCYTES ABSOLUTE AUTO 0.55 K/mm3 (0.16-1.47); MONOCYTES PERCENT AUTO 9 % (4-13); Mean Corpuscular HGB 33.2 pg (26.0-34.0); Mean Corpuscular HGB Conc 33.2 g/dL (31.5-36.5); Mean Corpuscular Volume 100 fL (80-100); Mean Platelet Volume 9.5 fL (9.1-12.4); NEUTROPHILS ABSOLUTE AUTO 4.18 K/mm3 (1.96-9.15); NEUTROPHILS PERCENT AUTO 66 % (41-73); Platelet Count 160 K/mm3 (150-400); RDW Coefficient Variation 12.6 % (11.7-14.2); RDW Standard Deviation 45.4 fL (35.1-46.3); Red Blood Cell Count 2.23 M/mm3 (3.80-5.20)
[2024-05-15 05:06] LABS: Bun/Creatinine Ratio 16.2 (12.0-20.0); Calcium, Blood 8.5 mg/dL (8.5-10.1); Creatinine, Blood 0.49 mg/dL (0.40-1.00); Potassium, Blood 3.9 mmol/L (3.5-5.5)
[2024-05-15 07:26] VITALS: BP 123/70
[2024-05-15 09:04] LABS: Percent Saturation 12.2 % (15.0-50.0)
[2024-05-15 11:59] LABS: Hematocrit 24.8 % (33.0-51.0); Hemoglobin 8.1 g/dL (11.5-16.0)
[2024-05-15] MEDS ORDERED: HYDROmorphone HCl/Pf 1MG SYR IV PRN (13:40)
[2024-05-15 15:13] VITALS: BP 121/84
--- NOTE | 2024-05-15 16:28 | NUR ---
SHIFT SUMMARY;PATIENT VERY PAINFULL THROUGHOUT DAY SHIFT. MEDICATED REPEATEDLY WITH FENTANYL IV. ROXYCODONE PO, TORADOL IV AND THEN FENTANYL SWITCHED TO DILAUDID IV. MARION APPEARS MORE COMFORTABLE AT THIS TIME. SHE WORKED WITH PT OT TODAY AND PER PT PLAN IS FOR HER TO RETURN TO [facility] WORKING WITH PT TOMORROW USING HER PERSONAL WHEEL CHAIR. NURSE FROM [facility] DID COME VISIT HER THIS AFTERNOON AND IS IN AGREEMENT WITH PATIENT GOING BACK THERE. HER VITAL SIGNS ARE WNL AND SHE IS NOT FEBRILE. HER LUNGS ARE CLEAR AND SHE IS AO X 4.
[2024-05-15 20:16] VITALS: BP 126/74
[2024-05-16 02:23] VITALS: BP 112/62
[2024-05-16 04:54] LABS: BASOPHILS ABSOLUTE AUTO 0.03 K/mm3 (0.00-0.23); BASOPHILS PERCENT AUTO 1 % (0-2); EOSINOPHILS PERCENT AUTO 2 % (0-6); Hematocrit 23.2 % (33.0-51.0); Hemoglobin 7.6 g/dL (11.5-16.0); IMMATURE GRAN ABSOLUTE AUTO 0.02 K/mm3 (0.00-0.10); IMMATURE GRAN PERCENT AUTO 0 % (0-1); LYMPHOCYTES ABSOLUTE AUTO 1.67 K/mm3 (0.84-5.20); LYMPHOCYTES PERCENT AUTO 26 % (21-46); MONOCYTES ABSOLUTE AUTO 0.42 K/mm3 (0.16-1.47); MONOCYTES PERCENT AUTO 6 % (4-13); Mean Corpuscular HGB Conc 32.8 g/dL (31.5-36.5); Mean Corpuscular Volume 101 fL (80-100); Mean Platelet Volume 9.8 fL (9.1-12.4); NEUTROPHILS ABSOLUTE AUTO 4.29 K/mm3 (1.96-9.15); NEUTROPHILS PERCENT AUTO 66 % (41-73); Platelet Count 221 K/mm3 (150-400); RDW Coefficient Variation 12.9 % (11.7-14.2); RDW Standard Deviation 46.2 fL (35.1-46.3); White Blood Cell Count 6.53 K/mm3 (4.00-11.30)
[2024-05-16 05:13] LABS: Bun/Creatinine Ratio 14.9 (12.0-20.0); Calcium, Blood 8.9 mg/dL (8.5-10.1); Creatinine, Blood 0.47 mg/dL (0.40-1.00); Potassium, Blood 3.8 mmol/L (3.5-5.5)
--- NOTE | 2024-05-16 06:15 | NUR ---
PHP SOFTWARE ENGINEER PATIENT IS A&OX4, VITALS ARE STABLE, ON ROOM AIR SATTING AT 97, WAS ON 1L NC IN THE ER. ON TELE RUNNIMG SINUS RHYTHM IN THE 60S, COMPLAIN OF 5/10 PAIN TO RIGHT LOWER EXTREMITY. PRN PAIN MEDS GIVEN. PATIENT VOMITED ABOUT 310ML OF DARK LIQUID, PRN N/V MEDS FIVEN. PATIENT IS ABLE TO CALL APPROPRIATELY. PATIENT FELL AND HRACTURE RIGHT FEMUR, IN A TRACTION, PLAN IS TO HAVE ORTHO CONSULTED PATIENT IS CURRENTLY NPO.
[2024-05-16 07:37] VITALS: BP 132/96
[2024-05-16] MEDS ORDERED: Ferrous Sulfate 325 MG Tab PO SCH (09:00)
[2024-05-16] MEDS ORDERED: Cyanocobalamin 500 MCG Tab PO SCH (09:00)
[2024-05-16 15:21] VITALS: BP 128/63
--- NOTE | 2024-05-16 18:29 | NUR ---
SHIFT SUMMARY PATIENT ALERT AND INTERACTIVE. PATIENT UP TO WHEELCHAIR WITH PT. PATIENT ATTEMPTED TO USE SLIDE BOARD TO GET BACK TO BED. PATIENT REFUSING TO USE LIFT. PATIENT ABLE TO GET SELF ON BED AND NEEDING STAFF TO HELP REPOSITION AND GET LEGS IN BED. PATIENT DISAPPOINTED THAT SHE WAS NOT DISCHARGING BACK TO THE [facility] TODAY. CASE MANAGEMENT WORKING ON DISCHARGE PLAN. CONTINUE TO MEDICATE FOR PAIN PER MAR.
[2024-05-16 19:58] VITALS: BP 134/78
[2024-05-17 02:37] VITALS: BP 113/76
--- NOTE | 2024-05-17 05:42 | NUR ---
IMPROVEMENT AUDITOR PATIENT IS A&OX4, VITALS ARE STABLE, ON ROOM AIR, NOT ON TELE. PATIENT COMPLAINED OF PAIN TO LEGS PRN PAIN MEDS GIVEN. PLAN POSSIBLE DISCHARGE TODAY
[2024-05-17 07:43] VITALS: BP 142/84
[2024-05-17] MEDS ORDERED: OXYC5 PO (11:08)
[2024-05-17] MEDS ORDERED: FERSU300 PO (11:08)
[2024-05-17] MEDS ORDERED: B-12500 MC2 PO (11:08)
[2024-05-17] MEDS ORDERED: SENN187 PO (11:19)
--- NOTE | 2024-05-17 14:24 | NUR ---
DISCHARGE NOTE MS ELISE WAS DISCHARGED BACK TO [facility] WHERE SHE RESIDES AT 1210HRS. SHE TRANSFERED WITH A SLIDE BOARD WITH 1 ASSIST ONTO HER WHEELCHAIR AND WAS ESCORTED FOR DISCHARGE WITH HER FAMILY. ENGINEERING PROJECT MANAGER GAVE HER FAMILY HER DISCHARGE PAPERS AND 2 HARD SCRIPTS. ARCHERY INSTRUCTOR REMOVED PIV. DRESSING TO LEFT HIP HAS NOT BEEN CHANGED SINCE SURGERY, C,D,I WITH ONE DOT OF OLD DRIED BLOOD. NO DRESSING CHANGE ORDERS. SHE SAID SHE HAS FOLLOW UP WITH ORTHOPEDICS. SHE HAD LEFT HIP 8/10 PAIN THIS AM, SHE SAID THAT OXY "TOOK THE EDGE OFF" AND THAT PAIN WAS TOLERABLE AFTERWARDS AT 7/10. ON ROOM AIR. ORIENTATED AND APPROPRIATE. NO NEW CONCERNS VIOCED PRIOR TO DISCHARGE.
== END 2024-05-17 12:19 | disposition home health service (06) | DRG 481 ==
LOC: ER 16:11 → MEDS 20:14
PROVIDERS: Family Medicine; Nurse Practitioner Acute Care; Orthopaedic Surgery; Student in an Organized Health Care Education/Training Program; ADMIT Internal Medicine
PROC: 0QS706Z Reposition Left Upper Femur with Intramedullary Internal Fixation Device, Open Approach (ICD-10-PCS; principal; 2024-05-14 10:30)
DX: S72.142A Displaced intertrochanteric fracture of left femur, initial encounter for closed fracture (principal); S82.145A Nondisplaced bicondylar fracture of left tibia, initial encounter for closed fracture; W05.0XXA Fall from non-moving wheelchair, initial encounter; F32.A Depression, unspecified; F41.9 Anxiety disorder, unspecified; G62.9 Polyneuropathy, unspecified; E78.5 Hyperlipidemia, unspecified; G35 Multiple sclerosis; S72.402B Unspecified fracture of lower end of left femur, initial encounter for open fracture type I or II; D50.9 Iron deficiency anemia, unspecified; G89.4 Chronic pain syndrome; Z96.651 Presence of right artificial knee joint; F17.210 Nicotine dependence, cigarettes, uncomplicated; E87.6 Hypokalemia; Z86.19 Personal history of other infectious and parasitic diseases; Z90.710 Acquired absence of both cervix and uterus; Z79.02 Long term (current) use of antithrombotics/antiplatelets; Z79.899 Other long term (current) drug therapy; Z79.891 Long term (current) use of opiate analgesic; Z99.3 Dependence on wheelchair
CPT/HCPCS: 36415; 73502; 73562-LT; 73564; 80048; 80053; 82607; 82728; 82746; 83540; 83550; 83735; 85014; 85018; 85025; 85610; 93005; 93010; 94762; 96374; 96376; 97110; 97162; 97530; 99283; 99283-25; 99285-25; A9270; C1713; J0171; J0690; J0780; J1100; J1170; J1790; J1885; J2250; J2270; J2371; J2405; J2704; J3010; J7030; P9045

== ENCOUNTER 2024-06-05 18:53 | Emergency (ER) | payer MEDICARE, OTHER ==
[~2024-06-05] VITALS: Ht 162.6 cm; Wt 59.0 kg
[~2024-06-05 18:53] MED LIST changes: +B-12500 MC2 PO; +DIAZ10 PO; +DIPATR PO; +FERSU300 PO; +SENN187 PO
[2024-06-05 20:30] VITALS: BP 108/61
== END 2024-06-05 22:17 | disposition home or self-care (01) ==
LOC: ER 18:53
DX: T14.8XXA Other injury of unspecified body region, initial encounter (principal); E78.5 Hyperlipidemia, unspecified; F17.210 Nicotine dependence, cigarettes, uncomplicated; W18.30XA Fall on same level, unspecified, initial encounter; Z79.02 Long term (current) use of antithrombotics/antiplatelets; Z79.899 Other long term (current) drug therapy
CPT/HCPCS: 73502; 73562-LT; 99284-25

== ENCOUNTER 2025-04-16 21:56 | Inpatient (IN) | payer MEDICARE, OTHER ==
[~2025-04-16] VITALS: Ht 162.6 cm; Wt 62.8 kg
[2025-04-16] MEDS ORDERED: Morphine Sulfate 4 MG/1 ML Injection IV ONE (22:20)
[2025-04-16] MEDS ORDERED: Ondansetron HCl 2 MG / ML 2ML Vial IV ONE (22:20)
[2025-04-16 22:26] LABS: BASOPHILS ABSOLUTE AUTO 0.03 K/mm3 (0.00-0.23); BASOPHILS PERCENT AUTO 0 % (0-2); EOSINOPHILS ABSOLUTE AUTO 0.03 K/mm3 (0.00-0.68); EOSINOPHILS PERCENT AUTO 0 % (0-6); Hematocrit 31.9 % (33.0-51.0); Hemoglobin 10.9 g/dL (11.5-16.0); IMMATURE GRAN ABSOLUTE AUTO 0.07 K/mm3 (0.00-0.10); IMMATURE GRAN PERCENT AUTO 0 % (0-1); LYMPHOCYTES ABSOLUTE AUTO 0.95 K/mm3 (0.84-5.20); LYMPHOCYTES PERCENT AUTO 6 % (21-46); MONOCYTES ABSOLUTE AUTO 1.24 K/mm3 (0.16-1.47); MONOCYTES PERCENT AUTO 8 % (4-13); Mean Corpuscular HGB Conc 34.2 g/dL (31.5-36.5); Mean Corpuscular Volume 102 fL (80-100); NEUTROPHILS ABSOLUTE AUTO 13.46 K/mm3 (1.96-9.15); NEUTROPHILS PERCENT AUTO 85 % (41-73); NRBC ABSOLUTE 0.00 K/mm3 (0.00-0.02); NRBC Auto 0.0 /100 WBC (0.0-0.2); Platelet Count 214 K/mm3 (150-400); RDW Coefficient Variation 12.6 % (11.7-14.2); RDW Standard Deviation 46.8 fL (35.1-46.3)
[2025-04-16 22:38] LABS: Alanine Aminotransfer (ALT/SGP 22.0 U/L (12-78); Albumin, Blood 3.3 g/dL (3.4-5.0); Albumin/Globulin Ratio 0.8 (0.8-1.8); Anion Gap 9.0 mmol/L (3-11); Aspartate Aminotrans (AST/SGOT 18.0 U/L (12-37); Bilirubin, Total 0.4 mg/dL (0.1-1.0); Blood Urea Nitrogen 15.0 mg/dL (8-24); CO2, Blood 27.0 mmol/L (21-32); Calcium, Blood 8.7 mg/dL (8.5-10.1); Chloride, Blood 103.0 mmol/L (98-108); Creatinine, Blood 0.56 mg/dL (0.40-1.00); Globulin, Blood 3.9 g/dL (2.2-4.0); Glucose, Blood 99.0 mg/dL (70-99); Magnesium, Blood 1.8 mg/dL (1.6-2.4); Potassium, Blood 3.1 mmol/L (3.5-5.5); Sodium, Blood 136.0 mmol/L (136-145); Total Protein, Blood 7.2 g/dL (6.4-8.2)
[2025-04-17] VITALS (18 sets, daily range): BP systolic 98–136; BP diastolic 57–101
[2025-04-17] MEDS ORDERED: NS 1,000 ML IV SCH ×2 (00:10→14:45)
[2025-04-17 00:18] LABS: Source, Urine Clean Catch
[2025-04-17 00:21] LABS: Bilirubin, Urine Neg (Neg); Color, Urine Yellow (P-Yellow); Glucose Qualitative, Urine Neg (Neg); Ketones, Urine 1+ (Neg); Leukocyte Esterase, Urine 3+ (Neg); Protein, Urine 2+ (Neg); Specific Gravity, Urine 1.005 (1.003-1.022); Urobilinogen, Urine NORM (Normal)
[2025-04-17 00:27] LABS: Red Blood Cells, Urine 0-2 /hpf (0-2)
[2025-04-17] MEDS ORDERED: CefTRIAXone Sodium 1,000 MG in NS 100 ML IV ONE (00:40)
[2025-04-17] MEDS ORDERED: Morphine Sulfate 4 MG/1 ML Injection IV PRN (01:40)
[2025-04-17] MEDS ORDERED: Ondansetron HCl 2 MG / ML 2ML Vial IV PRN ×2 (01:45→14:50)
[2025-04-17] MEDS ORDERED: Naloxone HCl 0.4MG / ML 1ML Vial IV PRN (01:45)
[2025-04-17] MEDS ORDERED: Ketorolac Tromethamine 15mg Vial IV PRN (01:55)
--- NOTE | 2025-04-17 05:45 | NUR ---
ADMIT NOTE REPORT RECEIVED BY THIS RN FROM EQUIPMENT LEAD, FAHEEM, @ APPROX 0344 PT ARRIVED TPO PCU 18 @ APPROX 0400, PT WAS SLID OVER BY MEDICAL STAFF TO PCU BED. PT ALERT, HOLDING APPROPRIATE CONVERSATION, VSS.
[2025-04-17] MEDS ORDERED: CEPH250A PO (06:04)
[2025-04-17] MEDS ORDERED: COENZYME Q-10100 MG PO (06:11)
[2025-04-17] MEDS ORDERED: RED YEAST RICE55 MG PO (06:14)
[2025-04-17] MEDS ORDERED: SERT25 PO (06:15)
[2025-04-17] MEDS ORDERED: ERGO50000 PO (06:17)
[2025-04-17] MEDS ORDERED: C COMPLEX1000 M1 PO (06:54)
[2025-04-17] MEDS ORDERED: Vitamin B Comple1 EA PO (06:54)
[2025-04-17] MEDS ORDERED: FERSU300 (07:11)
[2025-04-17] MEDS ORDERED: GABA800 PO (07:12)
[2025-04-17 07:26] LABS: BASOPHILS ABSOLUTE AUTO 0.02 K/mm3 (0.00-0.23); BASOPHILS PERCENT AUTO 0 % (0-2); EOSINOPHILS ABSOLUTE AUTO 0.01 K/mm3 (0.00-0.68); EOSINOPHILS PERCENT AUTO 0 % (0-6); Hematocrit 28.1 % (33.0-51.0); Hemoglobin 9.6 g/dL (11.5-16.0); IMMATURE GRAN ABSOLUTE AUTO 0.02 K/mm3 (0.00-0.10); IMMATURE GRAN PERCENT AUTO 0 % (0-1); LYMPHOCYTES ABSOLUTE AUTO 1.42 K/mm3 (0.84-5.20); LYMPHOCYTES PERCENT AUTO 19 % (21-46); MONOCYTES ABSOLUTE AUTO 0.53 K/mm3 (0.16-1.47); MONOCYTES PERCENT AUTO 7 % (4-13); Mean Corpuscular HGB Conc 34.2 g/dL (31.5-36.5); Mean Corpuscular Volume 103 fL (80-100); NEUTROPHILS ABSOLUTE AUTO 5.55 K/mm3 (1.96-9.15); NEUTROPHILS PERCENT AUTO 74 % (41-73); NRBC ABSOLUTE 0.00 K/mm3 (0.00-0.02); NRBC Auto 0.0 /100 WBC (0.0-0.2); Platelet Count 180 K/mm3 (150-400); RDW Coefficient Variation 12.8 % (11.7-14.2); RDW Standard Deviation 48.0 fL (35.1-46.3)
--- NOTE | 2025-04-17 07:28 | NUR ---
SHIFT SUMMARY PT IS A&O X4, ABLE TO MAKE NEEDS KNOWN, REPOSITIONING WITH STAFF ASSISTANCE, BASELINE PT USES WHEEL CHAIR, BUE MOVING WITH PURPOSE/ BLE PT UNABLE TO RAISE OFF BED. SPO2 GREATER 90% ON RA, LUNGS SOUND CLEAR AND DIM T/O, NO SIGNS OF RESPIRATORY DISTRESS, PT DENIES SOB. CONTINUOUS TELE MONITORING, SINUS 60 S, PULSES PRESENT T/O, PT DENEIS CHEST P/P T/O THIS SHIFT, BP STABLE WITH MAP GREATER THAN 65. BOWEL TONES PRESENT IN ALL 4Q, PT REPORTING TENDERNESS DURING PALPATION, PT DENIES FEELINGS OF CONSTIPATION, PT REPORTING NAUSEA / MEDICATED PER ORDERS. PUREWICK IN PLACE/CONNECTED TO LOW CONTINUOUS SUCTION, PT REPORT HAVING BASELINE INCONTINENCE. PT REPORTING RIGHT FLANK PAIN, MEDICATED PER ORDERS. BED LOWEST POSITION, CALL LIGHT IN REACH, AWAITING TO GIVE REPORT TO ONCOMING RN.
[2025-04-17 07:44] LABS: Alanine Aminotransfer (ALT/SGP 17.0 U/L (12-78); Albumin, Blood 2.8 g/dL (3.4-5.0); Albumin/Globulin Ratio 0.8 (0.8-1.8); Anion Gap 6.0 mmol/L (3-11); Aspartate Aminotrans (AST/SGOT 9.0 U/L (12-37); Bilirubin, Total 0.2 mg/dL (0.1-1.0); Blood Urea Nitrogen 11.0 mg/dL (8-24); CO2, Blood 30.0 mmol/L (21-32); Calcium, Blood 7.9 mg/dL (8.5-10.1); Chloride, Blood 109.0 mmol/L (98-108); Creatinine, Blood 0.61 mg/dL (0.40-1.00); Globulin, Blood 3.3 g/dL (2.2-4.0); Glucose, Blood 84.0 mg/dL (70-99); Magnesium, Blood 1.8 mg/dL (1.6-2.4); Potassium, Blood 3.4 mmol/L (3.5-5.5); Sodium, Blood 142.0 mmol/L (136-145); Total Protein, Blood 6.1 g/dL (6.4-8.2)
[2025-04-17] MEDS ORDERED: Lactobacil 2-S.Thermo-Bifido 1 1 Cap PO SCH (09:00)
[2025-04-17] MEDS ORDERED: ZINC OXIDE/PETROLATUM, YELLOW 1 APPLIC/71 GM PASTE TOP PRN (10:30)
--- NOTE | 2025-04-17 13:45 | NUR ---
SHIFT NOTE: PATIENT IS ALERT AND ORIENTED X 4 ABLE TO MAKE NEEDS KNOWN, EXTENSIVE MS HISTORY TO WHICH SHE IS WC BOUND AT BASELINE, PLAN FOR STENT PLACEMENT OF THE LEFT URETER, PATIENT HAS A LARGE STAGHORN CALCULUS, DENIES CHEST PAIN PRESSURE OR SOB AT REST. PAIN HAS BEEN MOSTLY MANAGED WELL NAUSEA WITH PRN MEDICATIONS. HAS A NEW MEPILEX TO COCCYX, DR. DAVIS VISUALIZED ABOUT POTENTIAL STAGE 2 PRESSURE INJURY. WOUND DRESSING ORDERS IN. SCD'S WERE TAKEN OFF FOR CHG BED BATH AND LETTING LEGS REST. NO OTHER ACUTE CONCERNS NOTED. TEE FOR URINATION BASELINE INCONTINENCE, DENIES CONSTIPATION FOR THIS RN.
[2025-04-17] MEDS ORDERED: Ketorolac Tromethamine 30mg Vial ONE (14:39)
[2025-04-17] MEDS ORDERED: Dexamethasone Sod Phos 10 MG/ML 1ML VIAL ONE (14:39)
[2025-04-17] MEDS ORDERED: Rocuronium Bromide 10 MG/ML 5ML Injection IV ONE (14:39)
[2025-04-17] MEDS ORDERED: FentaNYL Citrate 50 MCG/ML 2 ML Injection ONE (14:39)
[2025-04-17] MEDS ORDERED: Ondansetron HCl 2 MG / ML 2ML Vial ONE (14:39)
[2025-04-17] MEDS ORDERED: FentaNYL Citrate 50 MCG/ML 2 ML Injection IV PRN ×2 (14:50)
[2025-04-17] MEDS ORDERED: HYDROmorphone HCl/Pf 1MG SYR IV PRN ×2 (14:50)
[2025-04-17] MEDS ORDERED: Labetalol HCL 5 MG/ML 4ML Injection (Single Dose) IV PRN (14:50)
[2025-04-17] MEDS ORDERED: Metoclopramide HCl 5MG / ML 2ML Vial IV PRN (14:55)
[2025-04-17] MEDS ORDERED: Albuterol 2.5 MG/3 ML VIAL INH PRN (14:55)
[2025-04-17] MEDS ORDERED: CefOXitin Sodium 2,000 MG in NS 100 ML IV SCH (15:50)
[2025-04-17] MEDS ORDERED: Phenylephrine HCl 100 MCG/ML-NS 10MLSYR (1MG/10ML) ONE (15:52)
[2025-04-17] MEDS ORDERED: Sugammadex Sodium 200 MG/2ML SDV (100 MG/ML) ONE (16:09)
--- NOTE | 2025-04-17 17:56 | NUR ---
POST-OP PATIENT IS AOX4, REPORTS 8/10 PAIN, MEDICATED PER EMAR. PUREWICK IN PLACE, WITH CLEAN ATTENDS. PATIENT IS TOLERATING PO INTAKE. PATIENT IS A TURN Q2, 2 ASSIST. VSS, CALL LIGHT IN REACH.
[2025-04-17] MEDS ORDERED: CefTRIAXone Sodium 1,000 MG in NS 100 ML IV SCH (21:00)
[2025-04-18 04:01] VITALS: BP 118/60
[2025-04-18 04:43] LABS: BASOPHILS ABSOLUTE AUTO 0.03 K/mm3 (0.00-0.23); BASOPHILS PERCENT AUTO 0 % (0-2); EOSINOPHILS ABSOLUTE AUTO 0.00 K/mm3 (0.00-0.68); EOSINOPHILS PERCENT AUTO 0 % (0-6); Hematocrit 29.0 % (33.0-51.0); Hemoglobin 9.6 g/dL (11.5-16.0); IMMATURE GRAN ABSOLUTE AUTO 0.04 K/mm3 (0.00-0.10); IMMATURE GRAN PERCENT AUTO 1 % (0-1); LYMPHOCYTES ABSOLUTE AUTO 0.83 K/mm3 (0.84-5.20); LYMPHOCYTES PERCENT AUTO 11 % (21-46); MONOCYTES ABSOLUTE AUTO 0.41 K/mm3 (0.16-1.47); MONOCYTES PERCENT AUTO 5 % (4-13); Mean Corpuscular HGB Conc 33.1 g/dL (31.5-36.5); Mean Corpuscular Volume 104 fL (80-100); NEUTROPHILS ABSOLUTE AUTO 6.27 K/mm3 (1.96-9.15); NEUTROPHILS PERCENT AUTO 83 % (41-73); NRBC ABSOLUTE 0.00 K/mm3 (0.00-0.02); NRBC Auto 0.0 /100 WBC (0.0-0.2); Platelet Count 189 K/mm3 (150-400); RDW Coefficient Variation 12.8 % (11.7-14.2); RDW Standard Deviation 48.8 fL (35.1-46.3)
[2025-04-18 05:57] LABS: Alanine Aminotransfer (ALT/SGP 15.0 U/L (12-78); Albumin, Blood 3.0 g/dL (3.4-5.0); Albumin/Globulin Ratio 0.9 (0.8-1.8); Anion Gap 6.0 mmol/L (3-11); Aspartate Aminotrans (AST/SGOT 9.0 U/L (12-37); Bilirubin, Total 0.3 mg/dL (0.1-1.0); Blood Urea Nitrogen 9.0 mg/dL (8-24); CO2, Blood 28.0 mmol/L (21-32); Calcium, Blood 8.3 mg/dL (8.5-10.1); Chloride, Blood 110.0 mmol/L (98-108); Creatinine, Blood 0.59 mg/dL (0.40-1.00); Globulin, Blood 3.4 g/dL (2.2-4.0); Glucose, Blood 81.0 mg/dL (70-99); Magnesium, Blood 2.0 mg/dL (1.6-2.4); Potassium, Blood 4.0 mmol/L (3.5-5.5); Sodium, Blood 140.0 mmol/L (136-145); Total Protein, Blood 6.4 g/dL (6.4-8.2)
--- NOTE | 2025-04-18 06:07 | NUR ---
SHIFT SUMMARY PT S/P URETER STENT. PT PAIN HAS BEEN MANAGED PER EMAR. PT VOIDING, PUREWICK IN PLACE. URINE IS RED, MINIMAL CLOTS. PT HAS HAD SOME NAUSEA THIS SHIFT NO EMESIS. MANAGED WITH ZOFRAN. PT HAS BEEN ABLE TO HOLD DOWN PO INTAKE. POST OP VITALS STABLE. PLAN IS FOR [facility]LLOW UP WITH [facility] OUT[facility]. BED IN LOWEST POSITION, CALL LIGHT WITHIN REACH.
[2025-04-18 07:05] VITALS: BP 123/86
[2025-04-18] MEDS ORDERED: Vitamin B Complex 1 EA Softgel PO SCH (09:00)
[2025-04-18] MEDS ORDERED: Cholecalciferol 1000 Unit Tablet (=25MCG) PO SCH (09:00)
--- NOTE | 2025-04-18 09:21 | NUR ---
04/18/25 0921 Lisa Billingsley LATE ENTRY ISOVUE 30ML
[2025-04-18] MEDS ORDERED: Cefpodoxime Pr100 MG PO (15:49)
[2025-04-18] MEDS ORDERED: OXAYDO5 M1 PO (16:00)
[2025-04-18 16:10] VITALS: BP 129/44
--- NOTE | 2025-04-18 18:51 | NUR ---
SHIFT SUMMARY POD1 URETER STENT PLACEMENT, A/OX4, VSS, TOLERATING PO THOUGH SHE REPORTS INTERMITTENT NAUSEA, PAIN CONTROLLED PER EMAR THOUGH HER PRESENTATION APPEARS TO BE BETTER THAN THE NUMBERS SHE GIVES WHEN REPORTING PAIN. SHE WAS PLANNED FOR DISCHARGE TODAY BUT THEN WAS NOT FEELING WELL, THROWING UP AND RUNNING A FEVER WITH TMAX 101.3. ENCOURAGED SIPPING COOL FLUIDS WHEN NAUSEA SETTLES. NO OTHER EVENTS THIS SHIFT, CALL LIGHT IN REACH.
[2025-04-18 20:38] VITALS: BP 110/64
[2025-04-18] MEDS ORDERED: Polyethylene Glycol 3350 17 gm PO SCH (21:00)
[2025-04-19 04:22] VITALS: BP 100/68
--- NOTE | 2025-04-19 04:28 | NUR ---
SHIFT SUMMARY DOUG WAS ALERT AND FULLY ORIENTED ON ASSESSMENT. PT REPORTING HIGH PAIN WHEN AWAKE, RESPONDS WELL TO PAIN MEDS. URINE TO PURWIC RED, PT REPORTS THAT IT HAS LIGHTENED UP FROM EARLIER IN DAY SHIFT. PT REPORTING BILAT FLANK PAIN. DISCHARGE PACKET IN CHART. NO ACUTE EVENTS TONIGHT OR NOTED CHANGES TO PT CONDITION.
[2025-04-19 04:54] LABS: BASOPHILS ABSOLUTE AUTO 0.03 K/mm3 (0.00-0.23); BASOPHILS PERCENT AUTO 0 % (0-2); EOSINOPHILS ABSOLUTE AUTO 0.06 K/mm3 (0.00-0.68); EOSINOPHILS PERCENT AUTO 1 % (0-6); Hematocrit 26.1 % (33.0-51.0); Hemoglobin 8.9 g/dL (11.5-16.0); IMMATURE GRAN ABSOLUTE AUTO 0.03 K/mm3 (0.00-0.10); IMMATURE GRAN PERCENT AUTO 0 % (0-1); LYMPHOCYTES ABSOLUTE AUTO 1.25 K/mm3 (0.84-5.20); LYMPHOCYTES PERCENT AUTO 15 % (21-46); MONOCYTES ABSOLUTE AUTO 0.76 K/mm3 (0.16-1.47); MONOCYTES PERCENT AUTO 9 % (4-13); Mean Corpuscular HGB Conc 34.1 g/dL (31.5-36.5); Mean Corpuscular Volume 104 fL (80-100); NEUTROPHILS ABSOLUTE AUTO 6.34 K/mm3 (1.96-9.15); NEUTROPHILS PERCENT AUTO 75 % (41-73); NRBC ABSOLUTE 0.00 K/mm3 (0.00-0.02); NRBC Auto 0.0 /100 WBC (0.0-0.2); Platelet Count 168 K/mm3 (150-400); RDW Coefficient Variation 13.0 % (11.7-14.2); RDW Standard Deviation 49.1 fL (35.1-46.3)
[2025-04-19 05:35] LABS: Alanine Aminotransfer (ALT/SGP 17.0 U/L (12-78); Albumin, Blood 2.7 g/dL (3.4-5.0); Albumin/Globulin Ratio 0.8 (0.8-1.8); Anion Gap 5.0 mmol/L (3-11); Aspartate Aminotrans (AST/SGOT 19.0 U/L (12-37); Bilirubin, Total 0.2 mg/dL (0.1-1.0); Blood Urea Nitrogen 7.0 mg/dL (8-24); CO2, Blood 30.0 mmol/L (21-32); Calcium, Blood 7.7 mg/dL (8.5-10.1); Chloride, Blood 106.0 mmol/L (98-108); Creatinine, Blood 0.64 mg/dL (0.40-1.00); Globulin, Blood 3.3 g/dL (2.2-4.0); Glucose, Blood 116.0 mg/dL (70-99); Potassium, Blood 3.2 mmol/L (3.5-5.5); Sodium, Blood 138.0 mmol/L (136-145); Total Protein, Blood 6.0 g/dL (6.4-8.2)
--- NOTE | 2025-04-19 05:46 | NUR ---
NOTIFIED DR MENDENHALL OF THIS AM H/H RESULT. NO NEW ORDERS RECEIVED.
[2025-04-19 06:57] VITALS: BP 133/81
[2025-04-19] MEDS ORDERED: Ciprofloxacin 400MG/D5 200ML 200 ML IV SCH (09:00)
[2025-04-19] MEDS ORDERED: Ergocalciferol 50000 Intn'l Units PO SCH (09:00)
[2025-04-19 11:19] LABS: Hematocrit 29.0 % (33.0-51.0); Hemoglobin 9.7 g/dL (11.5-16.0)
[2025-04-19 12:23] LABS: Anion Gap 5.0 mmol/L (3-11); Blood Urea Nitrogen 6.0 mg/dL (8-24); CO2, Blood 31.0 mmol/L (21-32); Calcium, Blood 8.2 mg/dL (8.5-10.1); Chloride, Blood 107.0 mmol/L (98-108); Creatinine, Blood 0.64 mg/dL (0.40-1.00); Glucose, Blood 91.0 mg/dL (70-99); Potassium, Blood 3.3 mmol/L (3.5-5.5); Sodium, Blood 140.0 mmol/L (136-145)
[2025-04-19 14:41] VITALS: BP 122/78
--- NOTE | 2025-04-19 17:39 | NUR ---
SUMMARY: PT IS POD2 URETER STENT PLACEMENT. A/O, VSS. PT CONTINUES TO HAVE BLOODY, URINE OUTPUT. PUREWICK IN PLACE.PT REPOSITIONED FOR COMFORT AND HEELS FLOATED. PAIN MANAGED PER EMAR. PT CONTINUES TO HAVE NAUSEA, POOR PO INTAKE. NO ACUTE CONCERNS. PT USES CALL LIGHT
[2025-04-19 19:38] VITALS: BP 128/66
[2025-04-20 03:37] VITALS: BP 91/63
[2025-04-20 04:01] VITALS: BP 88/58
[2025-04-20] MEDS ORDERED: NS 1,000 ML IV SCH (04:05)
--- NOTE | 2025-04-20 04:24 | NUR ---
SHIFT SUMMARY AOX4. POD 3-URETER STENT PLACEMENT. PT VOIDED APPROX 700ML DRK CLEAR CRANBERRY COLOR URINE. REPORTS 8-10/10 PAIN TO BILAT FLANKS, MEDICATED W/4MG IV MORPHINE, 5MG OXYCODONE, TYLENOL & TORADOL PER EMAR ORDERS. PT STATED THIS AM SHE WAS ABLE TO FINALLY GET SOME REST. PT HAS LACK OF APPETITE R/T PAIN & NAUSEA FROM THE PAIN, EVEN WHEN TAKIN PO LIQUIDS. BP THIS AM TRENDING DOWN TO 88 SYSTOLIC FROM 120-130'S SYSTOLIC LAST NIGHT, INFORMED DR MENDENHALL & HE ORDERED 1x BAG NS TO BE GIVEN. REST OF VITALS STABLE. CALL LIGHT IN REACH.
[2025-04-20 04:59] LABS: BASOPHILS ABSOLUTE AUTO 0.03 K/mm3 (0.00-0.23); BASOPHILS PERCENT AUTO 1 % (0-2); EOSINOPHILS ABSOLUTE AUTO 0.10 K/mm3 (0.00-0.68); EOSINOPHILS PERCENT AUTO 2 % (0-6); Hematocrit 26.9 % (33.0-51.0); Hemoglobin 9.0 g/dL (11.5-16.0); IMMATURE GRAN ABSOLUTE AUTO 0.01 K/mm3 (0.00-0.10); IMMATURE GRAN PERCENT AUTO 0 % (0-1); LYMPHOCYTES ABSOLUTE AUTO 1.45 K/mm3 (0.84-5.20); LYMPHOCYTES PERCENT AUTO 24 % (21-46); MONOCYTES ABSOLUTE AUTO 0.66 K/mm3 (0.16-1.47); MONOCYTES PERCENT AUTO 11 % (4-13); Mean Corpuscular HGB Conc 33.5 g/dL (31.5-36.5); Mean Corpuscular Volume 104 fL (80-100); NEUTROPHILS ABSOLUTE AUTO 3.87 K/mm3 (1.96-9.15); NEUTROPHILS PERCENT AUTO 63 % (41-73); NRBC ABSOLUTE 0.00 K/mm3 (0.00-0.02); NRBC Auto 0.0 /100 WBC (0.0-0.2); Platelet Count 179 K/mm3 (150-400); RDW Coefficient Variation 12.8 % (11.7-14.2); RDW Standard Deviation 48.0 fL (35.1-46.3)
[2025-04-20 05:15] VITALS: BP 102/60
[2025-04-20 05:31] LABS: Alanine Aminotransfer (ALT/SGP 20.0 U/L (12-78); Albumin, Blood 2.7 g/dL (3.4-5.0); Albumin/Globulin Ratio 0.8 (0.8-1.8); Anion Gap 5.0 mmol/L (3-11); Aspartate Aminotrans (AST/SGOT 18.0 U/L (12-37); Bilirubin, Total 0.2 mg/dL (0.1-1.0); Blood Urea Nitrogen 4.0 mg/dL (8-24); CO2, Blood 30.0 mmol/L (21-32); Calcium, Blood 8.0 mg/dL (8.5-10.1); Chloride, Blood 109.0 mmol/L (98-108); Creatinine, Blood 0.62 mg/dL (0.40-1.00); Globulin, Blood 3.5 g/dL (2.2-4.0); Glucose, Blood 86.0 mg/dL (70-99); Potassium, Blood 3.8 mmol/L (3.5-5.5); Sodium, Blood 140.0 mmol/L (136-145); Total Protein, Blood 6.2 g/dL (6.4-8.2)
[2025-04-20 07:28] VITALS: BP 105/74
[2025-04-20] MEDS ORDERED: Morphine Sulfate 4 MG/1 ML Injection IV PRN (09:33)
--- NOTE | 2025-04-20 10:49 | NUR ---
NAUSEA PATIENT W/ PERSISTENT EPISODES OF NAUSEA, NO VOMITING DESPITE IV ZOFRAN ADMINISTRATION. MD SAUNDERS CONTACTED W/ UPDATE. MD TO REVIEW CHART AND PLACE NEW ORDERS.
[2025-04-20] MEDS ORDERED: Prochlorperazine Edisylate 10 mg Vial IV PRN (13:55)
[2025-04-20 15:47] VITALS: BP 90/61
--- NOTE | 2025-04-20 16:32 | NUR ---
SHIFT SUMMARY NO ACUTE EVENTS THIS SHIFT. PATIENT ALERT AND ORIENTED X4. COMMUNICATING NEEDS EFFECTIVELY. HX OF MS - WC BOUND AT BASELINE. 1-2P ASSIST W/ BED MOBILITY PRN. POD 3 URETER STENT PLACEMENT. SBP 90s-100s. MAP >65. ASYMPTOMATIC. IVF INFUSION COMPLETED. ON ROOM AIR, SATs >90%. DENIES SOB, RR EVEN AND UNLABORED. CONTINOUS PULSE OX AT BEDSIDE. PAIN REGIMEN ADJUSTED THIS MORNING BY MD - MANAGING PAIN PER EMAR AND W/ KPAD. EPISODES OF NAUSEA NO VOMITING - COMPAZINE ADDED TO REGIMEN W/ IMPROVEMENT OF S/S. INCREASING APPETITE AND PO INTAKE T/O DAY. MULTIPLE LOOSE BMs TODAY - CHANGING ATTENDS PRN. VOIDING CRANBERRY JUICE COLORED URINE - MD AWARE. CALL LIGHT IN REACH.
[2025-04-20 20:09] VITALS: BP 123/73
[2025-04-21 04:38] VITALS: BP 107/69
[2025-04-21 06:46] LABS: BASOPHILS ABSOLUTE AUTO 0.03 K/mm3 (0.00-0.23); BASOPHILS PERCENT AUTO 0 % (0-2); EOSINOPHILS ABSOLUTE AUTO 0.14 K/mm3 (0.00-0.68); EOSINOPHILS PERCENT AUTO 2 % (0-6); Hematocrit 28.0 % (33.0-51.0); Hemoglobin 9.4 g/dL (11.5-16.0); IMMATURE GRAN ABSOLUTE AUTO 0.02 K/mm3 (0.00-0.10); IMMATURE GRAN PERCENT AUTO 0 % (0-1); LYMPHOCYTES ABSOLUTE AUTO 0.84 K/mm3 (0.84-5.20); LYMPHOCYTES PERCENT AUTO 12 % (21-46); MONOCYTES ABSOLUTE AUTO 0.53 K/mm3 (0.16-1.47); MONOCYTES PERCENT AUTO 8 % (4-13); Mean Corpuscular HGB Conc 33.6 g/dL (31.5-36.5); Mean Corpuscular Volume 105 fL (80-100); NEUTROPHILS ABSOLUTE AUTO 5.39 K/mm3 (1.96-9.15); NEUTROPHILS PERCENT AUTO 78 % (41-73); NRBC ABSOLUTE 0.00 K/mm3 (0.00-0.02); NRBC Auto 0.0 /100 WBC (0.0-0.2); Platelet Count 192 K/mm3 (150-400); RDW Coefficient Variation 12.7 % (11.7-14.2); RDW Standard Deviation 48.9 fL (35.1-46.3)
[2025-04-21 07:10] LABS: Alanine Aminotransfer (ALT/SGP 20.0 U/L (12-78); Albumin, Blood 2.6 g/dL (3.4-5.0); Albumin/Globulin Ratio 0.8 (0.8-1.8); Anion Gap 7.0 mmol/L (3-11); Aspartate Aminotrans (AST/SGOT 13.0 U/L (12-37); Bilirubin, Total 0.2 mg/dL (0.1-1.0); Blood Urea Nitrogen 5.0 mg/dL (8-24); CO2, Blood 29.0 mmol/L (21-32); Calcium, Blood 8.1 mg/dL (8.5-10.1); Chloride, Blood 108.0 mmol/L (98-108); Creatinine, Blood 0.6 mg/dL (0.40-1.00); Globulin, Blood 3.4 g/dL (2.2-4.0); Glucose, Blood 90.0 mg/dL (70-99); Potassium, Blood 3.5 mmol/L (3.5-5.5); Sodium, Blood 140.0 mmol/L (136-145); Total Protein, Blood 6.0 g/dL (6.4-8.2)
[2025-04-21 07:42] VITALS: BP 110/74
--- NOTE | 2025-04-21 07:51 | NUR ---
SHIFT SUMMARY AOX4. VSS. POD 4-URETER STENT PLACED. STILL HAVING CRANBERRY COLOR URINE. PUREWICK & ATTENDS IN PLACE, CANISTER EMPTIED BY [employer] OBJECTS DEVELOPER & NOT CHARTED. REPORTED STILL HAVING NAUSEA AFTER 5MG COMPAZINE & 12/ INTERMITTENT STABBING FLANK PAIN AFTER RECIEVING 10MG PO OXYCODONE AT SHIFT CHANGE LAST NIGHT, THEREFORE MEDICATED W/10MG PO VALIUM & PT ABLE TO REST SOUNDLY T/O NIGHT. STATES THE "BEST SLEEP SHE'S HAD IN AWHILE." MEDICATED AGAIN THIS AM W/10MG OXYCODONE & 10MG IV COMPAZINE FOR NAUSEA. PT HAS HAD MINIMAL PO INTAKE, STATES SHE HAS NO APPETITE & THE NAUSEA EVEN MAKES IT HARD FOR HER TO DRINK FLUIDS SOMETIMES. CALL LIGHT IN REACH & PT ABLE TO MAKE NEEDS KNOWN.
--- NOTE | 2025-04-21 12:24 | NUR ---
LLE DRESSING CHANGED PER ORDER. WOUND CLEANSED WITH NS AND PATTED DRY. XEROFORM AND BORDERLESS FOAM DRESSING APPLIED. SECURED WITH ROLL GAUZE.
[2025-04-21 14:54] VITALS: BP 133/68
--- NOTE | 2025-04-21 17:45 | NUR ---
SHIFT SUMMARY PT USING LESS PAIN MEDICATIONS THIS SHIFT. GOOD UOP. IV INFUSING @ 125/HR. URINE COLOR HAS CHANGED TO YELLOW. ATTEMPTING REGLAN TODAY TO IMPROVE APPETITE. WILL CONTINUE TO MONITOR.
[2025-04-21 19:13] VITALS: BP 120/68
[2025-04-22 04:11] VITALS: BP 111/73
[2025-04-22 04:39] LABS: BASOPHILS ABSOLUTE AUTO 0.03 K/mm3 (0.00-0.23); BASOPHILS PERCENT AUTO 1 % (0-2); EOSINOPHILS ABSOLUTE AUTO 0.11 K/mm3 (0.00-0.68); EOSINOPHILS PERCENT AUTO 2 % (0-6); Hematocrit 27.8 % (33.0-51.0); Hemoglobin 9.3 g/dL (11.5-16.0); IMMATURE GRAN ABSOLUTE AUTO 0.01 K/mm3 (0.00-0.10); IMMATURE GRAN PERCENT AUTO 0 % (0-1); LYMPHOCYTES ABSOLUTE AUTO 1.44 K/mm3 (0.84-5.20); LYMPHOCYTES PERCENT AUTO 22 % (21-46); MONOCYTES ABSOLUTE AUTO 0.57 K/mm3 (0.16-1.47); MONOCYTES PERCENT AUTO 9 % (4-13); Mean Corpuscular HGB Conc 33.5 g/dL (31.5-36.5); Mean Corpuscular Volume 101 fL (80-100); NEUTROPHILS ABSOLUTE AUTO 4.44 K/mm3 (1.96-9.15); NEUTROPHILS PERCENT AUTO 67 % (41-73); NRBC ABSOLUTE 0.00 K/mm3 (0.00-0.02); NRBC Auto 0.0 /100 WBC (0.0-0.2); Platelet Count 230 K/mm3 (150-400); RDW Coefficient Variation 12.6 % (11.7-14.2); RDW Standard Deviation 46.3 fL (35.1-46.3)
[2025-04-22 05:18] LABS: Alanine Aminotransfer (ALT/SGP 18.0 U/L (12-78); Albumin, Blood 2.6 g/dL (3.4-5.0); Albumin/Globulin Ratio 0.8 (0.8-1.8); Anion Gap 9.0 mmol/L (3-11); Aspartate Aminotrans (AST/SGOT 12.0 U/L (12-37); Bilirubin, Total 0.3 mg/dL (0.1-1.0); Blood Urea Nitrogen 4.0 mg/dL (8-24); CO2, Blood 29.0 mmol/L (21-32); Calcium, Blood 8.2 mg/dL (8.5-10.1); Chloride, Blood 108.0 mmol/L (98-108); Creatinine, Blood 0.53 mg/dL (0.40-1.00); Globulin, Blood 3.4 g/dL (2.2-4.0); Glucose, Blood 90.0 mg/dL (70-99); Potassium, Blood 3.6 mmol/L (3.5-5.5); Sodium, Blood 142.0 mmol/L (136-145); Total Protein, Blood 6.0 g/dL (6.4-8.2)
[2025-04-22 07:19] VITALS: BP 123/78
--- NOTE | 2025-04-22 07:31 | NUR ---
NO ACUTE EVENTS OVERNIGHT. IV FLUIDS INFUSING. PT REPOSITIONED PER HER REQUEST. PAIN MEDICATION GIVEN ORDERED. BED LOCKED AND IN LOWEST POSITION. CALL LIGHT WITHIN REACH. PURWICK IN PLACE.
[2025-04-22 15:26] VITALS: BP 113/66
--- NOTE | 2025-04-22 17:10 | NUR ---
SUMMARY NO ACUTE CHANGES THIS SHIFT. VSS. AXO4. CHRONIC MUSCLE WEAKNESS REMAINS. PAIN BEING MANAGED WELL NAUSEA / EFFORTS MADE TO BE COMPLETELY PO NOW, ORDERS CHANGED IN EMAR. PLAN TOP HOPEFULLY DC TOMORROW. PT CONTINUES WITH PAIN TO L FLANK AND INTERMITTENT NAUSEA. URINE TO PUREWICK - ORANGE COLORED. PT HAVING LOOSE BM'S, BOWEL CARE MEDS HELD. PT RECEIVED BED BATH. BEING REPOSITIONED BUT PT IS CAPABLE OF ROLLING HERSELF SIDE TO SIDE. OTHERWISE, PT RESTING OFF AND ON, POSSIBLE DC TOMORROW.
[2025-04-22 19:39] VITALS: BP 133/89
[2025-04-23 03:50] VITALS: BP 110/74
--- NOTE | 2025-04-23 03:54 | NUR ---
NOC SUMMARY- PAIN MANAGED WELL. PT VOIDING VIA PUREWICK. PT REPOSITIONED TOLERATED. NO NEW ISSUES NOTED. CALL LIGHT IN REACH.
[2025-04-23 04:50] LABS: BASOPHILS ABSOLUTE AUTO 0.03 K/mm3 (0.00-0.23); BASOPHILS PERCENT AUTO 0 % (0-2); EOSINOPHILS ABSOLUTE AUTO 0.09 K/mm3 (0.00-0.68); EOSINOPHILS PERCENT AUTO 1 % (0-6); Hematocrit 28.7 % (33.0-51.0); Hemoglobin 9.6 g/dL (11.5-16.0); IMMATURE GRAN ABSOLUTE AUTO 0.02 K/mm3 (0.00-0.10); IMMATURE GRAN PERCENT AUTO 0 % (0-1); LYMPHOCYTES ABSOLUTE AUTO 0.98 K/mm3 (0.84-5.20); LYMPHOCYTES PERCENT AUTO 14 % (21-46); MONOCYTES ABSOLUTE AUTO 0.51 K/mm3 (0.16-1.47); MONOCYTES PERCENT AUTO 7 % (4-13); Mean Corpuscular HGB Conc 33.4 g/dL (31.5-36.5); Mean Corpuscular Volume 102 fL (80-100); NEUTROPHILS ABSOLUTE AUTO 5.40 K/mm3 (1.96-9.15); NEUTROPHILS PERCENT AUTO 77 % (41-73); NRBC ABSOLUTE 0.00 K/mm3 (0.00-0.02); NRBC Auto 0.0 /100 WBC (0.0-0.2); Platelet Count 235 K/mm3 (150-400); RDW Coefficient Variation 12.5 % (11.7-14.2); RDW Standard Deviation 46.2 fL (35.1-46.3)
[2025-04-23 05:11] LABS: Alanine Aminotransfer (ALT/SGP 16.0 U/L (12-78); Albumin, Blood 2.7 g/dL (3.4-5.0); Albumin/Globulin Ratio 0.8 (0.8-1.8); Anion Gap 6.0 mmol/L (3-11); Aspartate Aminotrans (AST/SGOT 11.0 U/L (12-37); Bilirubin, Total 0.3 mg/dL (0.1-1.0); Blood Urea Nitrogen 4.0 mg/dL (8-24); CO2, Blood 32.0 mmol/L (21-32); Calcium, Blood 8.5 mg/dL (8.5-10.1); Chloride, Blood 105.0 mmol/L (98-108); Creatinine, Blood 0.56 mg/dL (0.40-1.00); Globulin, Blood 3.6 g/dL (2.2-4.0); Glucose, Blood 100.0 mg/dL (70-99); Magnesium, Blood 1.7 mg/dL (1.6-2.4); Potassium, Blood 3.4 mmol/L (3.5-5.5); Sodium, Blood 140.0 mmol/L (136-145); Total Protein, Blood 6.3 g/dL (6.4-8.2)
[2025-04-23 07:47] VITALS: BP 138/71
[2025-04-23] MEDS ORDERED: TRAM50 PO (13:33)
[2025-04-23] MEDS ORDERED: PROC5 PO (13:51)
[2025-04-23] MEDS ORDERED: METO5A PO (13:53)
--- NOTE | 2025-04-23 14:42 | NUR ---
ASSUMED CARE @0700 PT AXO4. PAINFUL/NAUSEOUS - MEDS PER EMAR. RESIDENTS NOTIFIED OF PAIN NEEDS- SWITCHED TO TRAMADOL PO INSTEAD OF NORCO, PT TOELRATED WELL - STATES LESS NAUSEAOUS WITH TRAMADOL VS NORCO. PT WANTING TO GO HOME. TURNING WELL WITH PILLOWS. TOLERATING PO INTAKE WELL WITH LIMITED APPETITE AT TIMES. PUREWICK IN PLACE, PYRIDIUM CONTINUES. AFTER DISCUSSIONS WITH PHYSICIANS - PT DEEMED OK TO DC WITH UPDATED PAIN MEDS AND NAUSEA MEDS FOR DC. PT AWARE OF PLAN. VSS.
--- NOTE | 2025-04-23 14:45 | NUR ---
DISCHARGE: instructions and medications reviewed with patient and 2 [place] members transporting patient to [facility]. Discussed new meds/instructions and follow up at length, denies questions. IV D/C'd, escorted out via her own transport chair with caretakers.
== END 2025-04-23 14:40 | disposition home or self-care (01) | DRG 854 ==
LOC: ER 21:56 → SURS 04-17 01:36 → PCU 04-17 01:36 → SURS 04-17 16:21
PROVIDERS: Emergency Medicine; Urology; ADMIT Student in an Organized Health Care Education/Training Program
PROC: 3E03329 Introduction of Other Anti-infective into Peripheral Vein, Percutaneous Approach (ICD-10-PCS; 2025-04-17)
PROC: 0T778DZ Dilation of Left Ureter with Intraluminal Device, Via Natural or Artificial Opening Endoscopic (ICD-10-PCS; principal; 2025-04-17 14:30)
DX: A40.8 Other streptococcal sepsis (principal); D62 Acute posthemorrhagic anemia; N10 Acute pyelonephritis; Z16.19 Resistance to other specified beta lactam antibiotics; A41.59 Other Gram-negative sepsis; N20.0 Calculus of kidney; E87.6 Hypokalemia; I95.9 Hypotension, unspecified; F32.A Depression, unspecified; E78.5 Hyperlipidemia, unspecified; G35 Multiple sclerosis; L89.152 Pressure ulcer of sacral region, stage 2; G62.9 Polyneuropathy, unspecified; F17.200 Nicotine dependence, unspecified, uncomplicated; F41.9 Anxiety disorder, unspecified; Z99.3 Dependence on wheelchair; Z79.02 Long term (current) use of antithrombotics/antiplatelets
CPT/HCPCS: 36415; 36416; 51701; 74018; 74177; 80048; 80053; 81001; 82607; 82746; 82947; 83605; 83690; 83735; 84100; 85014; 85018; 85025; 87040; 87077; 87086; 87186; 94760; 96374-59; 96375; 99285-25; A9270; C1758; C2617; J0694; J0696; J0744; J0780; J1100; J1885; J2270; J2371; J2405; J2704; J3010; J3480; J7030; J7050; J7120; Q0164; Q9967

== ENCOUNTER 2025-05-02 13:46 | Emergency (ER) | payer MEDICARE, OTHER ==
[~2025-05-02] VITALS: Ht 162.6 cm; Wt 59.0 kg
[~2025-05-02 13:46] MED LIST changes: +C COMPLEX1000 M1 PO; +CIPR250 PO; +CIPR500 PO; +COENZYME Q-10100 MG PO; +Cefpodoxime Pr100 MG PO; +ERGO50000 PO; +FERSU300; +METO5A PO; +NALOXONE HCL4 MG; +ONDA4 PO; +OXAYDO5 M1 PO; +OXYC10TA19 PO; +PROC5 PO; +RED YEAST RICE55 MG PO; +SERT25 PO; +TRAM50 PO; +Vitamin B Comple1 EA PO
[2025-05-02 14:15] LABS: BASOPHILS ABSOLUTE AUTO 0.02 K/mm3 (0.00-0.23); BASOPHILS PERCENT AUTO 0 % (0-2); EOSINOPHILS ABSOLUTE AUTO 0.02 K/mm3 (0.00-0.68); EOSINOPHILS PERCENT AUTO 0 % (0-6); Hematocrit 28.9 % (33.0-51.0); Hemoglobin 10.0 g/dL (11.5-16.0); IMMATURE GRAN ABSOLUTE AUTO 0.07 K/mm3 (0.00-0.10); IMMATURE GRAN PERCENT AUTO 1 % (0-1); LYMPHOCYTES ABSOLUTE AUTO 0.79 K/mm3 (0.84-5.20); LYMPHOCYTES PERCENT AUTO 5 % (21-46); MONOCYTES ABSOLUTE AUTO 0.67 K/mm3 (0.16-1.47); MONOCYTES PERCENT AUTO 5 % (4-13); Mean Corpuscular HGB Conc 34.6 g/dL (31.5-36.5); Mean Corpuscular Volume 100 fL (80-100); NEUTROPHILS ABSOLUTE AUTO 13.28 K/mm3 (1.96-9.15); NEUTROPHILS PERCENT AUTO 90 % (41-73); NRBC ABSOLUTE 0.00 K/mm3 (0.00-0.02); NRBC Auto 0.0 /100 WBC (0.0-0.2); Platelet Count 267 K/mm3 (150-400); RDW Coefficient Variation 12.5 % (11.7-14.2); RDW Standard Deviation 45.9 fL (35.1-46.3)
[2025-05-02 14:32] LABS: Source, Urine Straight Cath
[2025-05-02 14:41] LABS: Bilirubin, Urine Neg (Neg); Color, Urine Red (P-Yellow); Glucose Qualitative, Urine Neg (Neg); Ketones, Urine 2+ (Neg); Leukocyte Esterase, Urine 2+ (Neg); Protein, Urine 4+ (Neg); Specific Gravity, Urine 1.015 (1.003-1.022); Urobilinogen, Urine NORM (Normal)
[2025-05-02 14:47] LABS: Alanine Aminotransfer (ALT/SGP 17.0 U/L (12-78); Albumin, Blood 3.1 g/dL (3.4-5.0); Albumin/Globulin Ratio 0.7 (0.8-1.8); Anion Gap 12.0 mmol/L (3-11); Aspartate Aminotrans (AST/SGOT 19.0 U/L (12-37); Bilirubin, Total 0.4 mg/dL (0.1-1.0); Blood Urea Nitrogen 8.0 mg/dL (8-24); CO2, Blood 24.0 mmol/L (21-32); Calcium, Blood 8.4 mg/dL (8.5-10.1); Chloride, Blood 103.0 mmol/L (98-108); Creatinine, Blood 0.72 mg/dL (0.40-1.00); Globulin, Blood 4.5 g/dL (2.2-4.0); Glucose, Blood 87.0 mg/dL (70-99); Potassium, Blood 3.3 mmol/L (3.5-5.5); Sodium, Blood 136.0 mmol/L (136-145); Total Protein, Blood 7.6 g/dL (6.4-8.2)
[2025-05-02 14:49] LABS: Red Blood Cells, Urine TNTC /hpf (0-2)
[2025-05-02] MEDS ORDERED: CO Q10100 MG PO (14:50)
[2025-05-02] MEDS ORDERED: FURO40 PO (14:51)
[2025-05-02] MEDS ORDERED: HYDROmorphone HCl/Pf 1MG SYR IV ONE ×2 (15:20→18:25)
[2025-05-02 19:18] VITALS: BP 107/71
== END 2025-05-02 19:47 | disposition home or self-care (01) ==
LOC: ER 13:46
PROVIDERS: Emergency Medicine
DX: N13.2 Hydronephrosis with renal and ureteral calculous obstruction (principal); Z79.899 Other long term (current) drug therapy; Z79.2 Long term (current) use of antibiotics; E78.5 Hyperlipidemia, unspecified; Z90.710 Acquired absence of both cervix and uterus
CPT/HCPCS: 74176; 80053; 81001; 83690; 85025; 87086; 99285-25; J1171; P9612

== ENCOUNTER 2025-05-05 14:12 | Inpatient (IN) | payer MEDICARE, OTHER ==
[2025-05-05] VITALS (10 sets, daily range): BP systolic 97–111; BP diastolic 57–84
[~2025-05-05] VITALS: Ht 157.5 cm; Wt 62.3 kg
[~2025-05-05 14:12] MED LIST changes: +CO Q10100 MG PO; +FURO40 PO
[2025-05-05] MEDS ORDERED: DICLOFENAC SOD100 GM TOP (14:58)
[2025-05-05] MEDS ORDERED: DIAZ10 PO (14:58)
[2025-05-05] MEDS ORDERED: TRAM50 PO (14:59)
[2025-05-05 15:34] LABS: Hematocrit 26.8 % (33.0-51.0); Hemoglobin 9.2 g/dL (11.5-16.0); Mean Corpuscular HGB Conc 34.3 g/dL (31.5-36.5); Mean Corpuscular Volume 98 fL (80-100); NRBC ABSOLUTE 0.00 K/mm3 (0.00-0.02); NRBC Auto 0.0 /100 WBC (0.0-0.2); Platelet Count 303 K/mm3 (150-400); RDW Coefficient Variation 12.4 % (11.7-14.2); RDW Standard Deviation 44.3 fL (35.1-46.3)
[2025-05-05 15:50] LABS: Source, Urine Straight Cath
[2025-05-05 16:04] LABS: Alanine Aminotransfer (ALT/SGP 14.0 U/L (12-78); Albumin, Blood 3.1 g/dL (3.4-5.0); Albumin/Globulin Ratio 0.8 (0.8-1.8); Anion Gap 9.0 mmol/L (3-11); Aspartate Aminotrans (AST/SGOT 13.0 U/L (12-37); Bilirubin, Total 0.5 mg/dL (0.1-1.0); Blood Urea Nitrogen 10.0 mg/dL (8-24); CO2, Blood 27.0 mmol/L (21-32); Calcium, Blood 8.8 mg/dL (8.5-10.1); Chloride, Blood 100.0 mmol/L (98-108); Creatinine, Blood 0.86 mg/dL (0.40-1.00); Globulin, Blood 3.9 g/dL (2.2-4.0); Glucose, Blood 119.0 mg/dL (70-99); Potassium, Blood 2.7 mmol/L (3.5-5.5); Sodium, Blood 133.0 mmol/L (136-145); Total Protein, Blood 7.0 g/dL (6.4-8.2)
[2025-05-05 16:10] LABS: BAND PERCENT MAN 6 % (0-8); BASOPHILS ABSOLUTE MAN 0.00 K/mm3 (0.00-0.23); BASOPHILS PERCENT MAN 0 % (0-2); EOSINOPHILS ABSOLUTE MAN 0.00 K/mm3 (0.00-0.68); EOSINOPHILS PERCENT MAN 0 % (0-6); LYMPHOCYTES ABSOLUTE MAN 0.53 K/mm3 (0.84-5.20); LYMPHOCYTES PERCENT MAN 3 % (21-46); MONOCYTES ABSOLUTE MAN 0.89 K/mm3 (0.16-1.47); MONOCYTES PERCENT MAN 5 % (4-13); NEUTROPHILS ABSOLUTE MAN 16.46 K/mm3 (1.96-9.15); SEG NEUTROPHILS PERCENT MAN 86 % (41-73)
[2025-05-05] MEDS ORDERED: FentaNYL Citrate 50 MCG/ML 2 ML Injection IV PRN ×2 (16:30→19:00)
[2025-05-05] MEDS ORDERED: Ondansetron HCl 2 MG / ML 2ML Vial IV ONE (16:30)
[2025-05-05] MEDS ORDERED: NS 1,000 ML IV SCH ×4 (16:35→23:00)
[2025-05-05 16:49] LABS: CORONAVIRUS COVID-19 AG Negative (NEGATIVE)
[2025-05-05 16:57] LABS: Bilirubin, Urine Neg (Neg); Color, Urine Amber (P-Yellow); Glucose Qualitative, Urine Neg (Neg); Ketones, Urine 2+ (Neg); Leukocyte Esterase, Urine 3+ (Neg); Protein, Urine 3+ (Neg); Specific Gravity, Urine 1.010 (1.003-1.022); Urobilinogen, Urine 1+ (Normal)
[2025-05-05 17:14] LABS: Red Blood Cells, Urine TNTC /hpf (0-2)
[2025-05-05] MEDS ORDERED: CefTRIAXone Sodium 2,000 MG in NS 100 ML IV ONE (18:00)
[2025-05-05] MEDS ORDERED: Piperacillin/Tazobactam Sod 4.5 GM in NS 100 ML IV ONE (18:35)
[2025-05-05] MEDS ORDERED: Ciprofloxacin 400MG/D5 200ML 200 ML IV ONE (18:35)
[2025-05-05] MEDS ORDERED: Ondansetron HCl 2 MG / ML 2ML Vial IV PRN (18:55)
[2025-05-05] MEDS ORDERED: OxyCODONE 5 mg/Acetamin 325 mg TABLET PO PRN (19:00)
[2025-05-05] MEDS ORDERED: Metoclopramide HCl 5MG / ML 2ML Vial IV PRN (19:00)
[2025-05-05] MEDS ORDERED: NS 1,000 ML IV ONE (20:00)
[2025-05-05] MEDS ORDERED: Lidocaine 2% Jelly Uro-Jet ONE (20:07)
[2025-05-05] MEDS ORDERED: Heparin Sodium,Porcine 5,000 UNIT/0.5 ML SDV SC SCH (21:00)
[2025-05-05] MEDS ORDERED: Lactobacil 2-S.Thermo-Bifido 1 1 Cap PO SCH (21:00)
[2025-05-05] MEDS ORDERED: ePHEDrine Sulfate 50 MG/ML 1ML Injection ONE (21:34)
[2025-05-05] MEDS ORDERED: FentaNYL Citrate 50 MCG/ML 2 ML Injection ONE (21:34)
[2025-05-05] MEDS ORDERED: Ondansetron HCl 2 MG / ML 2ML Vial ONE (21:34)
[2025-05-05] MEDS ORDERED: Dexamethasone Sod Phos 10 MG/ML 1ML VIAL ONE (21:34)
[2025-05-05 21:59] LABS: Source, Urine Suprapubic Cath
[2025-05-05 22:10] LABS: Bilirubin, Urine Neg (Neg); Glucose Qualitative, Urine Neg (Neg); Ketones, Urine 1+ (Neg); Leukocyte Esterase, Urine Neg (Neg); Protein, Urine 4+ (Neg); Specific Gravity, Urine 1.015 (1.003-1.022); Urobilinogen, Urine NORM (Normal)
[2025-05-05 22:16] LABS: Color, Urine Red (P-Yellow); Red Blood Cells, Urine TNTC /hpf (0-2); White Blood Cells, Urine 50-100 /hpf (0-5)
[2025-05-06] MEDS ORDERED: Piperacillin/Tazobactam Sod 3.375 GM in NS 100 ML IV SCH (01:00)
[2025-05-06 03:47] LABS: BASOPHILS ABSOLUTE AUTO 0.02 K/mm3 (0.00-0.23); BASOPHILS PERCENT AUTO 0 % (0-2); EOSINOPHILS ABSOLUTE AUTO 0.01 K/mm3 (0.00-0.68); EOSINOPHILS PERCENT AUTO 0 % (0-6); Hematocrit 25.0 % (33.0-51.0); Hemoglobin 8.5 g/dL (11.5-16.0); IMMATURE GRAN ABSOLUTE AUTO 0.08 K/mm3 (0.00-0.10); IMMATURE GRAN PERCENT AUTO 1 % (0-1); LYMPHOCYTES ABSOLUTE AUTO 0.45 K/mm3 (0.84-5.20); LYMPHOCYTES PERCENT AUTO 3 % (21-46); MONOCYTES ABSOLUTE AUTO 0.18 K/mm3 (0.16-1.47); MONOCYTES PERCENT AUTO 1 % (4-13); Mean Corpuscular HGB Conc 34.0 g/dL (31.5-36.5); Mean Corpuscular Volume 100 fL (80-100); NEUTROPHILS ABSOLUTE AUTO 16.27 K/mm3 (1.96-9.15); NEUTROPHILS PERCENT AUTO 96 % (41-73); NRBC ABSOLUTE 0.00 K/mm3 (0.00-0.02); NRBC Auto 0.0 /100 WBC (0.0-0.2); Platelet Count 265 K/mm3 (150-400); RDW Coefficient Variation 12.7 % (11.7-14.2); RDW Standard Deviation 46.1 fL (35.1-46.3)
[2025-05-06 04:02] VITALS: BP 98/58
[2025-05-06 04:07] LABS: Alanine Aminotransfer (ALT/SGP 14.0 U/L (12-78); Albumin, Blood 2.6 g/dL (3.4-5.0); Albumin/Globulin Ratio 0.7 (0.8-1.8); Anion Gap 11.0 mmol/L (3-11); Aspartate Aminotrans (AST/SGOT 9.0 U/L (12-37); Bilirubin, Total 0.5 mg/dL (0.1-1.0); Blood Urea Nitrogen 10.0 mg/dL (8-24); CO2, Blood 24.0 mmol/L (21-32); Calcium, Blood 7.9 mg/dL (8.5-10.1); Chloride, Blood 108.0 mmol/L (98-108); Creatinine, Blood 0.73 mg/dL (0.40-1.00); Globulin, Blood 3.7 g/dL (2.2-4.0); Glucose, Blood 123.0 mg/dL (70-99); Magnesium, Blood 1.9 mg/dL (1.6-2.4); Potassium, Blood 3.7 mmol/L (3.5-5.5); Sodium, Blood 139.0 mmol/L (136-145); Total Protein, Blood 6.3 g/dL (6.4-8.2)
--- NOTE | 2025-05-06 06:16 | NUR ---
PT ARRIVED TO FLOOR AT 2230 FROM ICU/RECOVERY S/P CYSTOSCOPY. PT ALERT AND ORIENTED X 4. VSS. IV FLUIDS INFUSING. PT HAD COMPLAINTS OF PAIN AND NAUSEA. PT MEDICATED WITH PRN MEDICATIONS ORDERED. PT HAS CRANBERRY COLORED URINE. PURWICK IN PLACE. BED LOCKED IN LOWEST POSITION. SCDs ON BILATERALLY. CALL LIGHT WITHIN REACH.
[2025-05-06 08:00] VITALS: BP 127/71
--- NOTE | 2025-05-06 08:17 | NUR ---
ASSUMPTION OF CARE RECEIVED REPORT FROM MYNOR LINCOLN. PATIENT IS SITTING UPRIGHT IN BED. NO OBVIOUS DISTRESS. USING HER CELL PHONE. PATIENT REPORTS NO COMPLAINTS. DAY SHIFT NURSE REPORTS THEY HAD NOT COMPLETED SHIFT ASSESSMENT PRIOR TO PASSING HER OFF. PATIENT REPORTS NO NEEDS AT THIS TIME. VSS.
[2025-05-06 15:09] VITALS: BP 91/58
--- NOTE | 2025-05-06 17:00 | NUR ---
SHIFT SUMMARY PATIENT A/OX4. NO CP OR SOB. LS CTA. PERSISTENT LOWER BACK & FLANK PAIN, WORSE ON LEFT SIDE THAN RIGHT. MEDICATED PRN FOR PAIN. CT ABD W/O CONTRAST DONE. NS CONT TO INFUSE AT 125ML/HR. 400ML RED COLORED URINE OUTPUT THIS SHIFT. COMPLIANT WITH ALL TREATMENT AND ABLE TO MAKE NEEDS KNOWN.
[2025-05-06 19:53] VITALS: BP 95/58
[2025-05-06 23:23] VITALS: BP 99/62
[2025-05-07 03:39] VITALS: BP 99/78
[2025-05-07 05:18] LABS: BASOPHILS ABSOLUTE AUTO 0.03 K/mm3 (0.00-0.23); BASOPHILS PERCENT AUTO 0 % (0-2); EOSINOPHILS ABSOLUTE AUTO 0.08 K/mm3 (0.00-0.68); EOSINOPHILS PERCENT AUTO 1 % (0-6); Hematocrit 22.6 % (33.0-51.0); Hemoglobin 7.5 g/dL (11.5-16.0); IMMATURE GRAN ABSOLUTE AUTO 0.04 K/mm3 (0.00-0.10); IMMATURE GRAN PERCENT AUTO 0 % (0-1); LYMPHOCYTES ABSOLUTE AUTO 1.29 K/mm3 (0.84-5.20); LYMPHOCYTES PERCENT AUTO 14 % (21-46); MONOCYTES ABSOLUTE AUTO 0.48 K/mm3 (0.16-1.47); MONOCYTES PERCENT AUTO 5 % (4-13); Mean Corpuscular HGB Conc 33.2 g/dL (31.5-36.5); Mean Corpuscular Volume 102 fL (80-100); NEUTROPHILS ABSOLUTE AUTO 7.47 K/mm3 (1.96-9.15); NEUTROPHILS PERCENT AUTO 80 % (41-73); NRBC ABSOLUTE 0.00 K/mm3 (0.00-0.02); NRBC Auto 0.0 /100 WBC (0.0-0.2); Platelet Count 271 K/mm3 (150-400); RDW Coefficient Variation 13.0 % (11.7-14.2); RDW Standard Deviation 48.0 fL (35.1-46.3)
[2025-05-07 05:58] LABS: Alanine Aminotransfer (ALT/SGP 13.0 U/L (12-78); Albumin, Blood 2.3 g/dL (3.4-5.0); Albumin/Globulin Ratio 0.7 (0.8-1.8); Anion Gap 8.0 mmol/L (3-11); Aspartate Aminotrans (AST/SGOT 9.0 U/L (12-37); Bilirubin, Total 0.3 mg/dL (0.1-1.0); Blood Urea Nitrogen 11.0 mg/dL (8-24); CO2, Blood 25.0 mmol/L (21-32); Calcium, Blood 7.7 mg/dL (8.5-10.1); Chloride, Blood 112.0 mmol/L (98-108); Creatinine, Blood 0.8 mg/dL (0.40-1.00); Globulin, Blood 3.5 g/dL (2.2-4.0); Glucose, Blood 95.0 mg/dL (70-99); Potassium, Blood 3.0 mmol/L (3.5-5.5); Sodium, Blood 142.0 mmol/L (136-145); Total Protein, Blood 5.8 g/dL (6.4-8.2)
--- NOTE | 2025-05-07 06:19 | NUR ---
NO ACUTE EVENTS OVERNIGHT. PT HAD COMPLAINTS OF PAIN AND NAUSEA. PT WAS MEDICATED WITH PRN PAIN AND NAUSEA MEDICATIONS ORDERED. PT'S POTASSIUM WAS 3.0. PROVIDER NOTIFIED. REPLACEMENT ORDERED AND GIVEN. IV FLUIDS INFUSING. URINE MAINTAINS CRANBERRY COLOR. BED LOCKED IN LOWEST POSITION. CALL LIGHT WITHIN REACH.
[2025-05-07 07:47] VITALS: BP 102/64
--- NOTE | 2025-05-07 08:23 | NUR ---
ASSUMPTION OF CARE: PATIENT WITH MINIMAL CHANGE FROM PREVIOUS SHIFT, OF CONCERN HGB DROP. PROVIDER ALREADY PLACING ORDERS, WILL CONFIRM WITH AM ROUNDS, PATIENT WITH RED URINE, SLIGHTLY LIGHTENING. HELD PLAVIX AND HEPARIN DUE TO ABOVE. DENIE SCHEST PAIN PRESSURE OR SOB. FLUIDS INFUSING AT 125, ZOSYN NOW INFUSING. ABX SWITCH AT NEXT DOSING WINDOW. PATIENT DENIES CHEST PAIN PRESSURE OR SOB AT REST. PATIENT ON RA SPO2 >96%. NO OTHER ACUTE CONCERNS, Q2 REPOSITIONS IN PLACE. RECENT REPOSITION BY [facility], LAST BM YESTERDAY.
[2025-05-07 11:22] VITALS: BP 93/63
[2025-05-07 13:06] LABS: Hematocrit 23.7 % (33.0-51.0); Hemoglobin 7.9 g/dL (11.5-16.0); Mean Corpuscular HGB Conc 33.3 g/dL (31.5-36.5); Mean Corpuscular Volume 102 fL (80-100); NRBC ABSOLUTE 0.00 K/mm3 (0.00-0.02); NRBC Auto 0.0 /100 WBC (0.0-0.2); Platelet Count 273 K/mm3 (150-400); RDW Coefficient Variation 13.2 % (11.7-14.2); RDW Standard Deviation 49.3 fL (35.1-46.3)
[2025-05-07 13:23] LABS: Prothrombin Time Results 11.6 Sec (9.7-11.5)
[2025-05-07] MEDS ORDERED: Ampicillin Sod/Sulbactam Sod 3 GM in NS 100 ML IV SCH (17:00)
[2025-05-07 17:17] VITALS: BP 119/76
--- NOTE | 2025-05-07 17:36 | NUR ---
SHIFT SUMMARY PATIENT A/OX4. NO CP OR SOB. INTERMITTENT NAUSEA TODAY, BUT NOT VOMITING. FREQUENT BACK AND FLANK PAIN. MEDICATED PRN FOR PAIN. REPOSITIONED FREQUENTLY. PATIENT HAD FRIEND VISIT THIS SHIFT. ABX ADJUSTED TO PRELIMINARY BC RESULTS. PURE WICK IN PLACE AND URINE COLOR IMPROVED FROM RED TO YELLOW WITH LIGHT PINK. SINUS RHYTHM ON TELE @ 70'S. VSS. CALL LIGHT IN REACH AND BED IN LOWEST POSITION.
[2025-05-07] MEDS ORDERED: NS 1,000 ML IV SCH (19:00)
[2025-05-07 19:34] VITALS: BP 117/80
[2025-05-07 21:20] LABS: Hematocrit 23.5 % (33.0-51.0); Hemoglobin 7.6 g/dL (11.5-16.0)
[2025-05-08 00:36] VITALS: BP 118/77
[2025-05-08 03:33] VITALS: BP 107/62
[2025-05-08 03:47] LABS: BASOPHILS ABSOLUTE AUTO 0.06 K/mm3 (0.00-0.23); BASOPHILS PERCENT AUTO 1 % (0-2); EOSINOPHILS ABSOLUTE AUTO 0.16 K/mm3 (0.00-0.68); EOSINOPHILS PERCENT AUTO 2 % (0-6); Hematocrit 24.8 % (33.0-51.0); Hemoglobin 8.1 g/dL (11.5-16.0); IMMATURE GRAN ABSOLUTE AUTO 0.03 K/mm3 (0.00-0.10); IMMATURE GRAN PERCENT AUTO 0 % (0-1); LYMPHOCYTES ABSOLUTE AUTO 1.66 K/mm3 (0.84-5.20); LYMPHOCYTES PERCENT AUTO 22 % (21-46); MONOCYTES ABSOLUTE AUTO 0.43 K/mm3 (0.16-1.47); MONOCYTES PERCENT AUTO 6 % (4-13); Mean Corpuscular HGB Conc 32.7 g/dL (31.5-36.5); Mean Corpuscular Volume 103 fL (80-100); NEUTROPHILS ABSOLUTE AUTO 5.32 K/mm3 (1.96-9.15); NEUTROPHILS PERCENT AUTO 69 % (41-73); NRBC ABSOLUTE 0.00 K/mm3 (0.00-0.02); NRBC Auto 0.0 /100 WBC (0.0-0.2); Platelet Count 285 K/mm3 (150-400); RDW Coefficient Variation 13.1 % (11.7-14.2); RDW Standard Deviation 49.1 fL (35.1-46.3)
[2025-05-08 04:09] LABS: Albumin, Blood 2.4 g/dL (3.4-5.0); Anion Gap 9 mmol/L (3-11); Blood Urea Nitrogen 8 mg/dL (8-24); CO2, Blood 27 mmol/L (21-32); Calcium, Blood 8.0 mg/dL (8.5-10.1); Chloride, Blood 112 mmol/L (98-108); Creatinine, Blood 0.69 mg/dL (0.40-1.00); Glucose, Blood 76 mg/dL (70-99); Phosphorus, Blood 2.2 mg/dL (2.5-4.9); Potassium, Blood 3.5 mmol/L (3.5-5.5); Sodium, Blood 144 mmol/L (136-145)
--- NOTE | 2025-05-08 06:24 | NUR ---
SHIFT SUMMARY: PT A&OX4, PLEASANT AND COOPERATIVE OF CARE. VSS ON RA. SR 60'S-70'S. C/O 10 PAIN TO LEFT FLANK, MEDICATED PER EMAR. TOLERATING A REGULAR DIET. WICKING SYSTEM DRAINING LARGE AMOUNTS OF URINE, WAS PINK AT BEGINNING OF THIS SHIFT, NOW PALE YELLOW. NO BM THIS SHIFT. NOOB THIS SHIFT, REPOSITIONED TOLERATED. BED IN LOWEST POSITION, CALL LIGHT WITHIN REACH. CALLS APPROPRIATELY AND IS ABLE TO ADVOCATE NEEDS EFFECTIVELY.
[2025-05-08 08:29] VITALS: BP 122/73
[2025-05-08] MEDS ORDERED: Potassium Phosphate Dibasic 15 MM in Dextrose 5% 250 ML IV STA (13:14)
[2025-05-08 15:10] VITALS: BP 120/74
[2025-05-08] MEDS ORDERED: Ketorolac Tromethamine 15mg Vial IV PRN (15:25)
[2025-05-08] MEDS ORDERED: Ampicillin Sod 2,000 MG in NS 100 ML IV SCH (16:00)
[2025-05-08] MEDS ORDERED: Ampicillin Sodium 2000MG Vial IV SCH (16:00)
--- NOTE | 2025-05-08 16:58 | NUR ---
SHIFT SUMMARY PATIENT A/OX4. NO CP OR SOB. CONT TO HAVE FREQUENT L FLANK AND MID BACK PAIN. PT REQUESTED PAIN MEDICATION OFTEN. MEDICATED PRN PER EMAR. PROVIDER ADDED TORADOL. IV ABX ADJUSTED TO AMPICILLIN. PT TURNED Q2HR. CONTINUED NAUSEA, NO VOMITING. MEDICATED WITH ZOFRAN IN MORNING. QTC INCREASED FROM YESTERDAY. REGLAN GIVEN NEEDED. MULTIPLE BM TODAY. MARICARMEN PO INTAKE WELL. VOIDING CLEAR YELLOW URINE WITH PUREWICK. REPEAT BC TODAY. PT APPRECIATIVE OF CARE. ABLE TO MAKE NEEDS KNOWN AND USES CALL LIGHT APPROPRIATELY.
[2025-05-08 20:04] VITALS: BP 116/88
[2025-05-08 23:18] VITALS: BP 107/71
[2025-05-09 03:52] VITALS: BP 109/63
[2025-05-09 04:40] LABS: BASOPHILS ABSOLUTE AUTO 0.05 K/mm3 (0.00-0.23); BASOPHILS PERCENT AUTO 1 % (0-2); EOSINOPHILS ABSOLUTE AUTO 0.12 K/mm3 (0.00-0.68); EOSINOPHILS PERCENT AUTO 2 % (0-6); Hematocrit 25.9 % (33.0-51.0); Hemoglobin 8.7 g/dL (11.5-16.0); IMMATURE GRAN ABSOLUTE AUTO 0.04 K/mm3 (0.00-0.10); IMMATURE GRAN PERCENT AUTO 1 % (0-1); LYMPHOCYTES ABSOLUTE AUTO 2.06 K/mm3 (0.84-5.20); LYMPHOCYTES PERCENT AUTO 35 % (21-46); MONOCYTES ABSOLUTE AUTO 0.27 K/mm3 (0.16-1.47); MONOCYTES PERCENT AUTO 5 % (4-13); Mean Corpuscular HGB Conc 33.6 g/dL (31.5-36.5); Mean Corpuscular Volume 100 fL (80-100); NEUTROPHILS ABSOLUTE AUTO 3.28 K/mm3 (1.96-9.15); NEUTROPHILS PERCENT AUTO 56 % (41-73); NRBC ABSOLUTE 0.00 K/mm3 (0.00-0.02); NRBC Auto 0.0 /100 WBC (0.0-0.2); Platelet Count 291 K/mm3 (150-400); RDW Coefficient Variation 13.0 % (11.7-14.2); RDW Standard Deviation 46.8 fL (35.1-46.3)
[2025-05-09 05:04] LABS: Albumin, Blood 2.4 g/dL (3.4-5.0); Anion Gap 8 mmol/L (3-11); Blood Urea Nitrogen 5 mg/dL (8-24); CO2, Blood 26 mmol/L (21-32); Calcium, Blood 7.9 mg/dL (8.5-10.1); Chloride, Blood 112 mmol/L (98-108); Creatinine, Blood 0.58 mg/dL (0.40-1.00); Glucose, Blood 73 mg/dL (70-99); Phosphorus, Blood 3.3 mg/dL (2.5-4.9); Potassium, Blood 3.2 mmol/L (3.5-5.5); Sodium, Blood 143 mmol/L (136-145)
--- NOTE | 2025-05-09 06:08 | NUR ---
SHIFT SUMMARY PATIENT ALERT AND ORINETED X4. MEDICATED PER EMAR FOR PAIN AND NAUSEA. HAD NO COMPLAINTS OF SHORTNESS OF BREATH. ON ROOM AIR WITH SPO2 >90%. VITAL SIGNS STABLE. NO ACUTE ISSUES NOTED OVERNIGHT. WILL CONTINUE TO MONITOR. CALL LIGHT WITHIN REACH.
[2025-05-09 07:50] VITALS: BP 111/79
--- NOTE | 2025-05-09 13:33 | NUR ---
TRANSFER NOTE: REPORT GIVEN TO LATONIA DE LOS SANTOS, FOR TRANSFER OF CARE.
--- NOTE | 2025-05-09 14:32 | NUR ---
Call to Dr. Amaya to request d/c of IV fentanyl. Pt has multiple po medications which are managing her chronic pain.
[2025-05-09 15:00] VITALS: BP 104/65
--- NOTE | 2025-05-09 15:24 | NUR ---
Midline extended dwell catheter placed CHRISTY. Pt education given beforehand. Pt tolerated well.
--- NOTE | 2025-05-09 17:03 | NUR ---
SHIFT SUMMARY: PT A/O X4, ABLE TO MAKE NEEDS KNOWN. PT ON ROOM AIR, SATS >95, DENIES SOB. PT NSR, HR 60-70s. PT DENIES CHEST PAIN/PRESSURE. PTs STATES PAIN IS LOCATED IN THE FLANK REGION, MEDICATED PT PER EMAR. PT USING PUREWICK TO VOID, INCONT/CONT. PT URINE IS LIGHT YELLOW, W/O STRONG ODOR. PT LYING IN BED, CALL WITHIN REACH.
[2025-05-09 19:40] VITALS: BP 114/77
[2025-05-09 23:09] VITALS: BP 113/73
[2025-05-10 03:40] VITALS: BP 117/64
[2025-05-10 04:00] LABS: BASOPHILS ABSOLUTE AUTO 0.03 K/mm3 (0.00-0.23); BASOPHILS PERCENT AUTO 1 % (0-2); EOSINOPHILS ABSOLUTE AUTO 0.18 K/mm3 (0.00-0.68); EOSINOPHILS PERCENT AUTO 3 % (0-6); Hematocrit 26.1 % (33.0-51.0); Hemoglobin 8.8 g/dL (11.5-16.0); IMMATURE GRAN ABSOLUTE AUTO 0.07 K/mm3 (0.00-0.10); IMMATURE GRAN PERCENT AUTO 1 % (0-1); LYMPHOCYTES ABSOLUTE AUTO 1.93 K/mm3 (0.84-5.20); LYMPHOCYTES PERCENT AUTO 31 % (21-46); MONOCYTES ABSOLUTE AUTO 0.32 K/mm3 (0.16-1.47); MONOCYTES PERCENT AUTO 5 % (4-13); Mean Corpuscular HGB Conc 33.7 g/dL (31.5-36.5); Mean Corpuscular Volume 100 fL (80-100); NEUTROPHILS ABSOLUTE AUTO 3.72 K/mm3 (1.96-9.15); NEUTROPHILS PERCENT AUTO 60 % (41-73); NRBC ABSOLUTE 0.00 K/mm3 (0.00-0.02); NRBC Auto 0.0 /100 WBC (0.0-0.2); Platelet Count 291 K/mm3 (150-400); RDW Coefficient Variation 13.0 % (11.7-14.2); RDW Standard Deviation 46.5 fL (35.1-46.3)
[2025-05-10 04:19] LABS: Anion Gap 8.0 mmol/L (3-11); Blood Urea Nitrogen 7.0 mg/dL (8-24); CO2, Blood 26.0 mmol/L (21-32); Calcium, Blood 8.0 mg/dL (8.5-10.1); Chloride, Blood 114.0 mmol/L (98-108); Creatinine, Blood 0.61 mg/dL (0.40-1.00); Glucose, Blood 79.0 mg/dL (70-99); Potassium, Blood 3.5 mmol/L (3.5-5.5); Sodium, Blood 144.0 mmol/L (136-145)
--- NOTE | 2025-05-10 06:12 | NUR ---
SHIFT SUMMARY PATIENT ALERT AND ORIENTED X4. MEDICATED PER EMAR FOR PAIN. DENIES SHORTNESS OF BREATH, ON ROOM AIR WITH SPO2 >90%. VITAL SIGNS STABLE. NO ACUTE ISSUES NOTED OVERNIGHT. WILL CONTINUE TO MONITOR. CALL LIGHT WITHIN REACH.
[2025-05-10 07:32] VITALS: BP 115/72
[2025-05-10] MEDS ORDERED: Ampicillin Sodiu2 G1 IV (10:08)
[2025-05-10] MEDS ORDERED: AMOCLA500 PO (10:09)
[2025-05-10] MEDS ORDERED: Percocet 5-3251 EACH PO (10:09)
[2025-05-10 11:21] VITALS: BP 138/82
--- NOTE | 2025-05-10 13:12 | NUR ---
Phone call from pt's sister states [facility] (pt's residence assisted living) is requesting documentation for SNF placement and anticipated date of return to home. Chart information above was faxed to [facility] [phone] fax number provided by Nathan's sister.
--- NOTE | 2025-05-10 13:17 | NUR ---
D/C NOTE: PT LEFT VIA WHEELCHAIR BY RACHELLE WOODRUFF AT APPROX 1305. GAVE REPORT TO RACHELLE WOODRUFF RN TAKING OVER CARE. PT RECIEVED D/C INSTRUCTIONS, AND WAS SENT WITH ALL BELONGINGS.
== END 2025-05-10 13:03 | DRG 659 ==
LOC: ER 14:12 → PCU 18:55
PROVIDERS: Emergency Medicine; Family Medicine; Nurse Practitioner Acute Care; Student in an Organized Health Care Education/Training Program; Urology; ADMIT Student in an Organized Health Care Education/Training Program
PROC: 0TP98DZ Removal of Intraluminal Device from Ureter, Via Natural or Artificial Opening Endoscopic (ICD-10-PCS; 2025-05-05)
PROC: BT1F1ZZ Fluoroscopy of Left Kidney, Ureter and Bladder using Low Osmolar Contrast (ICD-10-PCS; 2025-05-05)
PROC: 3E03329 Introduction of Other Anti-infective into Peripheral Vein, Percutaneous Approach (ICD-10-PCS; 2025-05-05)
PROC: 0T778DZ Dilation of Left Ureter with Intraluminal Device, Via Natural or Artificial Opening Endoscopic (ICD-10-PCS; principal; 2025-05-05 09:30)
DX: T83.122A Displacement of indwelling ureteral stent, initial encounter (principal); A41.81 Sepsis due to Enterococcus; E87.1 Hypo-osmolality and hyponatremia; N13.6 Pyonephrosis; G82.20 Paraplegia, unspecified; G35 Multiple sclerosis; E87.6 Hypokalemia; E78.5 Hyperlipidemia, unspecified; Z99.3 Dependence on wheelchair; F41.9 Anxiety disorder, unspecified; F17.210 Nicotine dependence, cigarettes, uncomplicated; G89.4 Chronic pain syndrome; G62.9 Polyneuropathy, unspecified; L89.152 Pressure ulcer of sacral region, stage 2; D64.9 Anemia, unspecified; M81.0 Age-related osteoporosis without current pathological fracture; Z78.0 Asymptomatic menopausal state; Z79.02 Long term (current) use of antithrombotics/antiplatelets; Z79.891 Long term (current) use of opiate analgesic; Z79.899 Other long term (current) drug therapy; Z87.442 Personal history of urinary calculi; Y73.2 Prosthetic and other implants, materials and accessory gastroenterology and urology devices associated with adverse incidents
CPT/HCPCS: 36415; 51701; 71260; 74176; 74177; 80048; 80053; 80069; 81001; 83605; 83735; 85014; 85018; 85025; 85027; 85379; 85610; 85730; 86850; 86900; 86901; 87040; 87077; 87086; 87186; 87428-QW; 93971; 96361; 96374-59; 96375; 99285-25; A9270; C1751; J0290; J0295; J0744; J1100; J1644; J1885; J2405; J2543; J2704; J2765; J3010; J3480; J7030; J7050; J7060; Q9967

== ENCOUNTER 2025-05-11 11:30 | Inpatient (IN) | payer MEDICARE, OTHER ==
[~2025-05-11] VITALS: Ht 162.6 cm; Wt 64.5 kg
[~2025-05-11 11:30] MED LIST changes: +Amoxicillin500 MG PO; +Ampicillin Sodiu2 G1 IV; +DICLOFENAC SOD100 GM TOP; -OXYC10TA19 PO; +Percocet 5-3251 EACH PO
[2025-05-11] MEDS ORDERED: Magnesium Hydroxide Conc 10 ML UDC PO PRN (12:30)
[2025-05-11] MEDS ORDERED: Vancomycin (Pharmacy Consult) IV SCH (12:35)
--- NOTE | 2025-05-11 12:53 | NUR ---
ADMIT PT DIRECT ADMIT FROM [facility]. PT ARRIVED VIA AMBULANCE. 4 ASSIST TO TRANSFER VIA GURNEY. PT ALERT AND COOPERATIVE. C/O OF NAUSEA. DR MENDENHALL CALLED. CARE ONGOING.
[2025-05-11] MEDS ORDERED: NS 250 ML IV PRN (12:55)
[2025-05-11 12:59] VITALS: BP 140/94
[2025-05-11] MEDS ORDERED: Ampicillin Sod 2,000 MG in NS 100 ML IV SCH (13:00)
[2025-05-11] MEDS ORDERED: Naloxone HCL 4 MG SPRAY (1 UNIT) PRN (14:15)
[2025-05-11 16:48] VITALS: BP 115/62
--- NOTE | 2025-05-11 18:36 | NUR ---
NOTE PT ALERT AND ORIENTED. ABLE TO MAKE NEEDS KNOWN. MEDCIATED FOR PAIN WITH ROUTINE MEDICATIONS. HER PAIN IS A BUTRNING GENERALIZED DISCOMFORT FROM HER MS. SHE HAS A BACLOFEN PUMP LEFT ABD THAT IS FUNCTIONAL. SHE STATED THAT IT HELPS HER A LOT. VSS. ANTIBITOCS INFUSING PEORDER. RIGHT UE POWER GLIDE FLUSHES BUT DOES NOT DRAW. PT HAS BLUE FOOT BOOTS FROM ICU ON. SHE REALLY LIKES THEM. REPOSTIONED NEEDED. CARE ONGOING.
[2025-05-11 19:22] VITALS: BP 116/65
[2025-05-11] MEDS ORDERED: Lactobacil 2-S.Thermo-Bifido 1 1 Cap PO SCH (21:00)
[2025-05-12 03:56] VITALS: BP 117/77
[2025-05-12 05:43] LABS: BASOPHILS ABSOLUTE AUTO 0.04 K/mm3 (0.00-0.23); BASOPHILS PERCENT AUTO 1 % (0-2); EOSINOPHILS ABSOLUTE AUTO 0.15 K/mm3 (0.00-0.68); EOSINOPHILS PERCENT AUTO 2 % (0-6); Hematocrit 27.8 % (33.0-51.0); Hemoglobin 9.2 g/dL (11.5-16.0); IMMATURE GRAN ABSOLUTE AUTO 0.10 K/mm3 (0.00-0.10); IMMATURE GRAN PERCENT AUTO 1 % (0-1); LYMPHOCYTES ABSOLUTE AUTO 1.57 K/mm3 (0.84-5.20); LYMPHOCYTES PERCENT AUTO 21 % (21-46); MONOCYTES ABSOLUTE AUTO 0.43 K/mm3 (0.16-1.47); MONOCYTES PERCENT AUTO 6 % (4-13); Mean Corpuscular HGB Conc 33.1 g/dL (31.5-36.5); Mean Corpuscular Volume 103 fL (80-100); NEUTROPHILS ABSOLUTE AUTO 5.35 K/mm3 (1.96-9.15); NEUTROPHILS PERCENT AUTO 70 % (41-73); NRBC ABSOLUTE 0.00 K/mm3 (0.00-0.02); NRBC Auto 0.0 /100 WBC (0.0-0.2); Platelet Count 270 K/mm3 (150-400); RDW Coefficient Variation 13.5 % (11.7-14.2); RDW Standard Deviation 48.6 fL (35.1-46.3)
--- NOTE | 2025-05-12 06:05 | NUR ---
SUMMARY: PT AOX4, RA, REPO Q 2 OVERNIGHT DUE TO PARAPLEGIA. BACLOFEN PUMP IN PLACE. MEDICATED PER EMAR FOR FLANK PAIN. IV ABX GIVEN. CALL LIGHT WITHIN REACH AND BED IN LOW POSITION. PUREWICK IN PLACE.
[2025-05-12 06:11] LABS: Alanine Aminotransfer (ALT/SGP 16.0 U/L (12-78); Albumin, Blood 2.6 g/dL (3.4-5.0); Albumin/Globulin Ratio 0.8 (0.8-1.8); Anion Gap 8.0 mmol/L (3-11); Aspartate Aminotrans (AST/SGOT 15.0 U/L (12-37); Bilirubin, Total 0.3 mg/dL (0.1-1.0); Blood Urea Nitrogen 9.0 mg/dL (8-24); CO2, Blood 24.0 mmol/L (21-32); Calcium, Blood 8.4 mg/dL (8.5-10.1); Chloride, Blood 109.0 mmol/L (98-108); Creatinine, Blood 0.64 mg/dL (0.40-1.00); Globulin, Blood 3.3 g/dL (2.2-4.0); Glucose, Blood 77.0 mg/dL (70-99); Potassium, Blood 3.3 mmol/L (3.5-5.5); Sodium, Blood 138.0 mmol/L (136-145); Total Protein, Blood 5.9 g/dL (6.4-8.2)
[2025-05-12 07:48] VITALS: BP 117/86
[2025-05-12] MEDS ORDERED: Vitamin B Complex 1 EA Softgel PO SCH (09:00)
[2025-05-12] MEDS ORDERED: Enoxaparin 40 MG/0.4 ML SYR SC SCH (09:00)
[2025-05-12] MEDS ORDERED: Misc. Injectable SC SCH (09:00)
[2025-05-12 15:30] VITALS: BP 120/88
--- NOTE | 2025-05-12 16:29 | NUR ---
NOTE PT RESTING. VSS. ANTIBITOICS HAVE BEEN DE ESCALATED R/T BLOOD CULTURE RESULTS. MEDCIATED FOR PAIN PER EMAR. PT PAIN IS A CONSTANT 8-06/21. PUREWICK FUNCTIONAL. LARGE OUT PT OF LIGHT FRANCO URINE. EATING WELL. RESPOITIONED PER HER REQUEST. BED LOW LOCKED. CALL LIGHT WITH IN REACH, CARE ONGOING.
--- NOTE | 2025-05-13 04:11 | NUR ---
PATIENT REQUESTED 1 DOSE OF ZOFRAN AROUND 0400 D/T NAUSEA. OTHER RESTREPO PATIENT HAS BEEN COMFORTABLE AND RESTING ALL NIGHT.
[2025-05-13 04:29] VITALS: BP 116/74
[2025-05-13 07:29] VITALS: BP 122/87
[2025-05-13 07:43] LABS: BASOPHILS ABSOLUTE AUTO 0.03 K/mm3 (0.00-0.23); BASOPHILS PERCENT AUTO 0 % (0-2); EOSINOPHILS ABSOLUTE AUTO 0.14 K/mm3 (0.00-0.68); EOSINOPHILS PERCENT AUTO 2 % (0-6); Hematocrit 27.7 % (33.0-51.0); Hemoglobin 9.2 g/dL (11.5-16.0); IMMATURE GRAN ABSOLUTE AUTO 0.12 K/mm3 (0.00-0.10); IMMATURE GRAN PERCENT AUTO 2 % (0-1); LYMPHOCYTES ABSOLUTE AUTO 1.69 K/mm3 (0.84-5.20); LYMPHOCYTES PERCENT AUTO 21 % (21-46); MONOCYTES ABSOLUTE AUTO 0.47 K/mm3 (0.16-1.47); MONOCYTES PERCENT AUTO 6 % (4-13); Mean Corpuscular HGB Conc 33.2 g/dL (31.5-36.5); Mean Corpuscular Volume 102 fL (80-100); NEUTROPHILS ABSOLUTE AUTO 5.69 K/mm3 (1.96-9.15); NEUTROPHILS PERCENT AUTO 70 % (41-73); NRBC ABSOLUTE 0.00 K/mm3 (0.00-0.02); NRBC Auto 0.0 /100 WBC (0.0-0.2); Platelet Count 257 K/mm3 (150-400); RDW Coefficient Variation 13.8 % (11.7-14.2); RDW Standard Deviation 49.5 fL (35.1-46.3)
[2025-05-13 07:58] LABS: Anion Gap 8.0 mmol/L (3-11); Blood Urea Nitrogen 7.0 mg/dL (8-24); CO2, Blood 26.0 mmol/L (21-32); Calcium, Blood 8.2 mg/dL (8.5-10.1); Chloride, Blood 109.0 mmol/L (98-108); Creatinine, Blood 0.63 mg/dL (0.40-1.00); Glucose, Blood 74.0 mg/dL (70-99); Potassium, Blood 3.5 mmol/L (3.5-5.5); Sodium, Blood 139.0 mmol/L (136-145)
[2025-05-13 15:55] VITALS: BP 118/68
--- NOTE | 2025-05-13 17:05 | NUR ---
PATIENT A/OX4, W/C AT BASELINE. ABLE TO REPOSITION SELF IN BED. VSS, ON RA. PUREWICK IN PLACE WITH ADEQUATE U/O. L FLANK PAIN TREATED WITH OXYCODONE Q4, AND TYLENOL AND TRAMADOL X1 THIS SHIFT. SKIN INTACT. NAUSEA WITHOUT VOMITTING, TREATED WITH ZOFRAN X2 THIS SHIFT. PATIENT CALM AND COOPERATIVE AND CALLS APPROPRIATELY FOR ASSISTANCE. NO NEW CONCERNS THIS SHIFT.
[2025-05-13 20:19] VITALS: BP 96/66
[2025-05-13 22:54] VITALS: BP 118/68
--- NOTE | 2025-05-13 23:00 | NUR ---
HOSPITALIST CONTACT PT VITALS SHOW LOW BP. NURSE MANUAL CHECK RESULT WITH MAP OF 67. PT ENORSING INCREASED FATIGUE. CALL TO HOSPITALIST. TALKED TO SUSANNA. NEW ORDER FOR 1 LITER BOLUS OF LR AND THEN CONT FLUIDS AT 125MLS. RECHECK BLOOD PRESSURE AFTER BOLUS. BOLUS GIVEN AND BLOOD PRESSURE RECHECKED MANUALLY; NEW BP 118/68.
[2025-05-14 05:07] VITALS: BP 111/48
[2025-05-14 05:28] LABS: Hematocrit 27.1 % (33.0-51.0); Hemoglobin 8.8 g/dL (11.5-16.0)
--- NOTE | 2025-05-14 05:49 | NUR ---
SAMPLE EXAMINER SUMMARY PT A/OX4. ABLE TO MAKE NEEDS KNOWN. PLEASANT AND COOPERATIVE WITH CARE. PT REQUIRED FLUID BOLUS DUE TO LOW BP--SEE PREVIOUS NURSE NOTE. BP IMPROVED AFTER BOLUS AND IS CONT TO RECIEVE LR AT 125MLS AN HOUR. PT CONTINUES TO REPORT 9-1010 PAIN ONGOING--PT REQUESTING MEDS AND RECIEVING AVAILABLE. Q4 AMPICILLIN GIVEN PER NOV. PT WAKEFUL T/O THE NIGHT. PAIN REPORTED CONTINUES TO PRESENT IN RIGHT FLANK. PT ASSISTED WITH REPOSITIONING T/O THE NIGHT. CALL LIGHT ACCESSIBLE. REGULAR ROUNDING COMPLETE T/O THE SHIFT. CARE WILL CONTINUE UNTIL REPORT GIVEN TO ONCOMING NURSE.
[2025-05-14 07:19] VITALS: BP 113/63
[2025-05-14 15:46] VITALS: BP 105/61
--- NOTE | 2025-05-14 17:33 | NUR ---
NO ACUTE CHANGES THIS SHIFT. PT EXPERIENCING 9/10 PAIN TO LEFT FLANK. TREATING PER EMAR. Q2 TURNS. PT ABLE TO ASSIST. PURWICK IN PLACE PT IS NOT AMBULATORY. NO CONCERNS THIS SHIFT
[2025-05-14 19:50] VITALS: BP 127/77
[2025-05-14] MEDS ORDERED: NS 250 ML IV PRN (23:55)
[2025-05-15 03:09] VITALS: BP 99/68
[2025-05-15 05:37] LABS: Hematocrit 26.2 % (33.0-51.0); Hemoglobin 8.7 g/dL (11.5-16.0)
[2025-05-15 06:06] LABS: Albumin, Blood 2.6 g/dL (3.4-5.0); Anion Gap 9 mmol/L (3-11); Blood Urea Nitrogen 7 mg/dL (8-24); CO2, Blood 28 mmol/L (21-32); Calcium, Blood 8.5 mg/dL (8.5-10.1); Chloride, Blood 108 mmol/L (98-108); Creatinine, Blood 0.72 mg/dL (0.40-1.00); Glucose, Blood 77 mg/dL (70-99); Phosphorus, Blood 3.7 mg/dL (2.5-4.9); Potassium, Blood 3.7 mmol/L (3.5-5.5); Sodium, Blood 141 mmol/L (136-145)
--- NOTE | 2025-05-15 06:44 | NUR ---
SHIFT SUMMARY;SLEPT IN LONG INTERVALS, MEDICATED FOR PAIN OFTEN,ABLE TO DRAW AM LABS THRU POWERGLIDE.PLEASANT TO WORK WITH. NO BM TONIGHT
[2025-05-15 07:36] VITALS: BP 130/79
--- NOTE | 2025-05-15 17:46 | NUR ---
NO ACUTE CHANGES THIS SHIFT. IV ANTIBIOTICS CONTINUED. PLANS TO UPDATE PT PAIN MEDS FOR BETTER PAIN CONTROL. NO CONCERNS THIS SHIFT. LARGE BM X2 THIS SHIFT
[2025-05-15 19:34] VITALS: BP 120/76
[2025-05-16 03:29] VITALS: BP 104/65
--- NOTE | 2025-05-16 04:19 | NUR ---
SHIFT SUMMARY; PATIENT SLEPT IN LONG INTERVALS. WAS STARTED ON MS CONTIN AT HS. IT SEEMS TO BE WORKING VERY WELL, SHE HAS NOT REQUIRED ANY PRN PAIN MEDS SO FAR THIS SHIFT. SHE DID HAVE NAUSEA TREATED WITH ORAL ZOFRAN. LR/75ML/HR INFUSING.
[2025-05-16 06:07] LABS: BASOPHILS ABSOLUTE AUTO 0.03 K/mm3 (0.00-0.23); BASOPHILS PERCENT AUTO 0 % (0-2); EOSINOPHILS ABSOLUTE AUTO 0.09 K/mm3 (0.00-0.68); EOSINOPHILS PERCENT AUTO 1 % (0-6); Hematocrit 26.7 % (33.0-51.0); Hemoglobin 9.0 g/dL (11.5-16.0); IMMATURE GRAN ABSOLUTE AUTO 0.03 K/mm3 (0.00-0.10); IMMATURE GRAN PERCENT AUTO 0 % (0-1); LYMPHOCYTES ABSOLUTE AUTO 1.41 K/mm3 (0.84-5.20); LYMPHOCYTES PERCENT AUTO 19 % (21-46); MONOCYTES ABSOLUTE AUTO 0.44 K/mm3 (0.16-1.47); MONOCYTES PERCENT AUTO 6 % (4-13); Mean Corpuscular HGB Conc 33.7 g/dL (31.5-36.5); Mean Corpuscular Volume 101 fL (80-100); NEUTROPHILS ABSOLUTE AUTO 5.40 K/mm3 (1.96-9.15); NEUTROPHILS PERCENT AUTO 73 % (41-73); NRBC ABSOLUTE 0.00 K/mm3 (0.00-0.02); NRBC Auto 0.0 /100 WBC (0.0-0.2); Platelet Count 197 K/mm3 (150-400); RDW Coefficient Variation 14.1 % (11.7-14.2); RDW Standard Deviation 51.2 fL (35.1-46.3)
[2025-05-16 06:58] LABS: Anion Gap 7.0 mmol/L (3-11); Blood Urea Nitrogen 6.0 mg/dL (8-24); CO2, Blood 30.0 mmol/L (21-32); Calcium, Blood 8.2 mg/dL (8.5-10.1); Chloride, Blood 108.0 mmol/L (98-108); Creatinine, Blood 0.58 mg/dL (0.40-1.00); Glucose, Blood 82.0 mg/dL (70-99); Potassium, Blood 3.6 mmol/L (3.5-5.5); Sodium, Blood 141.0 mmol/L (136-145)
[2025-05-16 07:34] VITALS: BP 105/64
[2025-05-16 15:55] VITALS: BP 120/80
--- NOTE | 2025-05-16 17:08 | NUR ---
NO ACUTE CHANGES THIS SHIFT. IV ANTIBIOTICS AND PAIN MANAGEMENT CONTINUED. PT REPORTS 04/21 PAIN WITH NEW PAIN MEDICATION REGIMEN. DISCHARGE PENDING PT/OT EVAL. ALERT AND ORIENTED X4, TEARFUL THIS AFTERNOON AFTER RECIEVING NEWS THAT SHE MAY HAVE TO GO TO SNF UNTIL 05/25 TO COMPLETE IV ANTIBIOTIC THERAPY. PER ROADWAY DESIGNER, [facility] RECOMMENDING IV ANTIOBIOTIC COMPLETION ON 05/19. DISCHARGE DISPOSITION UNCLEAR AT THIS TIME.
[2025-05-16 19:48] VITALS: BP 109/75
[2025-05-17 03:09] VITALS: BP 94/56
--- NOTE | 2025-05-17 06:47 | NUR ---
SHIFT SUMMARY A/Ox4, PLEASANT. VSS ON RA. PT REPORTS 8-10/10 L FLANK/BACK PAIN; SCHEDULED AND PRN MEDICATIONS MILDLY EFFECTIVE. PT REPORTS BETTER SLEEP. NO ACUTE CHANGES OVERNIGHT. Q2 TURNS COMPLETED.
[2025-05-17 08:02] VITALS: BP 107/70
[2025-05-17] MEDS ORDERED: Nitrofurantoin/Nitrofuran Mac 100 MG Cap PO SCH (09:00)
[2025-05-17 16:32] VITALS: BP 134/78
--- NOTE | 2025-05-17 17:26 | NUR ---
End of shift summary: Patient is alert and oriented x4; pleasant and cooperative with care. Patient denied CP/pressure, SOB, N/V/D today. She does have continued pain in her back; medicated per EMAR with relief noted. Patient up with PT today to chair; 2-person with slide board. All medications administered per EMAR. No acute changes this shift. Patient utilizing call light appropriately; call light within reach, bed in lowest position. Will continue to monitor until next shift nurse arrives and report is given.
[2025-05-17 19:24] VITALS: BP 113/77
--- NOTE | 2025-05-18 02:45 | NUR ---
SHIFT SUMMARY NO ACUTE EVENTS DURING THIS SHIFT. PT C/O 06/21 LEFT FLANK PAIN, RADIATING TO THE FRONT SIDE. MEDICATED PER EMAR. PUREWICK DRAINING YELLOW COLOR URINE. IV AMPICILLIN INFUSED ORDERED. BED AT THE LOWEST POSITION, CALL LIGHT W/I REACH.
[2025-05-18 04:44] VITALS: BP 114/68
[2025-05-18 06:04] LABS: BASOPHILS ABSOLUTE AUTO 0.03 K/mm3 (0.00-0.23); BASOPHILS PERCENT AUTO 1 % (0-2); EOSINOPHILS ABSOLUTE AUTO 0.16 K/mm3 (0.00-0.68); EOSINOPHILS PERCENT AUTO 3 % (0-6); Hematocrit 27.8 % (33.0-51.0); Hemoglobin 9.2 g/dL (11.5-16.0); IMMATURE GRAN ABSOLUTE AUTO 0.02 K/mm3 (0.00-0.10); IMMATURE GRAN PERCENT AUTO 0 % (0-1); LYMPHOCYTES ABSOLUTE AUTO 1.24 K/mm3 (0.84-5.20); LYMPHOCYTES PERCENT AUTO 20 % (21-46); MONOCYTES ABSOLUTE AUTO 0.50 K/mm3 (0.16-1.47); MONOCYTES PERCENT AUTO 8 % (4-13); Mean Corpuscular HGB Conc 33.1 g/dL (31.5-36.5); Mean Corpuscular Volume 103 fL (80-100); NEUTROPHILS ABSOLUTE AUTO 4.34 K/mm3 (1.96-9.15); NEUTROPHILS PERCENT AUTO 69 % (41-73); NRBC ABSOLUTE 0.00 K/mm3 (0.00-0.02); NRBC Auto 0.0 /100 WBC (0.0-0.2); Platelet Count 199 K/mm3 (150-400); RDW Coefficient Variation 14.4 % (11.7-14.2); RDW Standard Deviation 53.2 fL (35.1-46.3)
[2025-05-18 06:24] LABS: Anion Gap 7.0 mmol/L (3-11); Blood Urea Nitrogen 8.0 mg/dL (8-24); CO2, Blood 29.0 mmol/L (21-32); Calcium, Blood 8.4 mg/dL (8.5-10.1); Chloride, Blood 106.0 mmol/L (98-108); Creatinine, Blood 0.66 mg/dL (0.40-1.00); Glucose, Blood 86.0 mg/dL (70-99); Potassium, Blood 3.3 mmol/L (3.5-5.5); Sodium, Blood 139.0 mmol/L (136-145)
[2025-05-18 08:04] VITALS: BP 104/67
[2025-05-18] MEDS ORDERED: Polyethylene Glycol 3350 17 gm PO SCH (09:00)
[2025-05-18 16:41] VITALS: BP 116/77
[2025-05-18 19:15] VITALS: BP 124/73
--- NOTE | 2025-05-18 19:35 | NUR ---
End of shift summary: Patient is alert and oriented x4; pleasant and cooperative with care. Patient with reduced use of pain medication today and appeared comfortable this shift. All medications administered per EMAR. Patient denied SOB, CP today; had slight nausea at dinner and medicated with Ondansetron with good relief. No acute changes this shift. Patient utilizes call light appropriately; call light within reach and bed in lowest position. Report given to shift supervisor melting nurse.
--- NOTE | 2025-05-19 03:29 | NUR ---
DIRECTOR OF SECURITY SUMMARY VSS. ALERT AND ORIENTED. COOPERATIVE WITH CARE. REQUESTED AND RECEIVED ANALGESICS FOR PAIN (MS). REPOSITIONED INTERMITTENTLY THROUGHOUT SHIFT (SEE DOCUMENTAION). IV ANTIBIOTICS ADMINISTERED FOR BACTEREMIA. PUREWICK IN PLACE FOR VOIDING. OUTPUT FRANCO. HAS BEEN RESTING QUIETLY WITH OCCASIONAL INTERRUPTION. CALL LIGHT IN REACH, RAILS UP X 2 AND BED IN LOW POSITION FOR SAFETY. WILL CONTINUE TO MONITOR
[2025-05-19 03:34] VITALS: BP 108/68
[2025-05-19 06:00] LABS: Anion Gap 8.0 mmol/L (3-11); Blood Urea Nitrogen 8.0 mg/dL (8-24); CO2, Blood 27.0 mmol/L (21-32); Calcium, Blood 8.6 mg/dL (8.5-10.1); Chloride, Blood 107.0 mmol/L (98-108); Creatinine, Blood 0.63 mg/dL (0.40-1.00); Glucose, Blood 89.0 mg/dL (70-99); Potassium, Blood 3.4 mmol/L (3.5-5.5); Sodium, Blood 139.0 mmol/L (136-145)
--- NOTE | 2025-05-19 07:28 | NUR ---
ASSUMED CARE OF PATIENT, BEDSIDE REPORT FROM SILVIA LINCOLN. REVIEWED CHART, PATIENT DENIES NEEDS AT THIS TIME.
[2025-05-19 08:09] VITALS: BP 133/80
[2025-05-19 15:23] VITALS: BP 139/87
--- NOTE | 2025-05-19 18:08 | NUR ---
END OF SHIFT NOTE. PATIENT A/O X4 TODAY. PURE WICK AND ATTENDS CHANGED X2. PATIENT HAD TWO BOWEL MOVEMENTS. REPOSITIONED Q2-Q4 HOURS AND ASSISTED WITH MOVEMENTS AND BED CHANGES. REMOVED HEEL PADS PER PATIENT REQUEST. INCREASED WATER INTAKE WELL TODAY.
[2025-05-19 19:49] VITALS: BP 128/90
[2025-05-20 03:36] VITALS: BP 98/70
--- NOTE | 2025-05-20 04:39 | NUR ---
SOLAR INSTALLER SUMMARY PT A&OX4, VSS. PLEASANT AND COOPERATIVE W/ CARE. ABLE TO MAKE NEEDS KNOWN WELL AND USES CALL LIGHT APPROPRIATELY. PT HAS BEEN ASLEEP FOR MOST OF THE NIGHT. CHEST RISE/RESPIRATIONS NOTED. PT REQUESTED AND WAS ADMINISTERED OXYCODONE X 2 PRN THIS SHIFT WITH GOOD EFFECT. PUREWICK REMAINS IN PLACE FOR INCONTINENCE. DRAINING CLEAR, YELLOW URINE TO SUCTION. CONTINUES ON Q4 AMPICILLIN. BED RAILS UP X 2, BED IN LOWEST POSITION, BED WHEELS LOCKED, PERSONAL BELONGINGS AND CALL LIGHT WITHIN REACH FOR SAFETY.
[2025-05-20 05:43] LABS: BASOPHILS ABSOLUTE AUTO 0.04 K/mm3 (0.00-0.23); BASOPHILS PERCENT AUTO 1 % (0-2); EOSINOPHILS ABSOLUTE AUTO 0.18 K/mm3 (0.00-0.68); EOSINOPHILS PERCENT AUTO 3 % (0-6); Hematocrit 30.2 % (33.0-51.0); Hemoglobin 10.0 g/dL (11.5-16.0); IMMATURE GRAN ABSOLUTE AUTO 0.02 K/mm3 (0.00-0.10); IMMATURE GRAN PERCENT AUTO 0 % (0-1); LYMPHOCYTES ABSOLUTE AUTO 1.44 K/mm3 (0.84-5.20); LYMPHOCYTES PERCENT AUTO 24 % (21-46); MONOCYTES ABSOLUTE AUTO 0.42 K/mm3 (0.16-1.47); MONOCYTES PERCENT AUTO 7 % (4-13); Mean Corpuscular HGB Conc 33.1 g/dL (31.5-36.5); Mean Corpuscular Volume 103 fL (80-100); NEUTROPHILS ABSOLUTE AUTO 3.94 K/mm3 (1.96-9.15); NEUTROPHILS PERCENT AUTO 65 % (41-73); NRBC ABSOLUTE 0.00 K/mm3 (0.00-0.02); NRBC Auto 0.0 /100 WBC (0.0-0.2); Platelet Count 198 K/mm3 (150-400); RDW Coefficient Variation 14.2 % (11.7-14.2); RDW Standard Deviation 53.4 fL (35.1-46.3)
[2025-05-20 06:06] LABS: Anion Gap 8.0 mmol/L (3-11); Blood Urea Nitrogen 7.0 mg/dL (8-24); CO2, Blood 27.0 mmol/L (21-32); Calcium, Blood 8.7 mg/dL (8.5-10.1); Chloride, Blood 107.0 mmol/L (98-108); Creatinine, Blood 0.56 mg/dL (0.40-1.00); Glucose, Blood 123.0 mg/dL (70-99); Potassium, Blood 3.6 mmol/L (3.5-5.5); Sodium, Blood 138.0 mmol/L (136-145)
[2025-05-20 07:43] VITALS: BP 115/81
[2025-05-20] MEDS ORDERED: MORP15ER PO (10:37)
[2025-05-20] MEDS ORDERED: IBUP400 PO (10:37)
[2025-05-20] MEDS ORDERED: DOCU100 PO (10:37)
[2025-05-20] MEDS ORDERED: NITR100CA PO (10:40)
[2025-05-20] MEDS ORDERED: POTCHL20ER PO (10:40)
[2025-05-20] MEDS ORDERED: MIRALAX17 GM PO (10:40)
[2025-05-20] MEDS ORDERED: SENN187 PO (10:40)
--- NOTE | 2025-05-20 11:33 | NUR ---
DC PACKET SENT WITH NURSE ROBERT FOR [facility] ALDR[facility]GE. DC PACKET AND HARD SCRIPT FOR MEDS SENT WITH NURSE ROBERT FOR [facility]DR[facility]. PT HAS BEEN CLEARED TO [facility]. HARD SCRIPT FOR NARCOTICS SENT WITH HER TO GET FILLED. VERBAL REPORT ON PATIENT ALSO GIVEN TO ROBERT, NO FURTHER QUESTIONS AT THIS TIME.
--- NOTE | 2025-05-20 13:29 | NUR ---
DISCHARGE PT DISCHARGED BACK TO [facility]. NURSE ROBERT EVALUATED THE PATIENT THIS AM. PT USED A SLIDE BOARD TO TRANSFER TO HER OWN WHEELCHAIR. PT BELONGINGS SENT WITH THE PATIENT. PT TRANSPORTED BY [facility], IN [facility]. NO ACUTE CHANGES IN ASSESSMENT PRIOR TO DC. NEW PHOTO TAKEN OF PT SACRUM AND PLACED IN CHART. PT PLEASANT AND DENIES OTHER NEED FOR INSTRUCTION PRIOR TO DC. PT MEDICATE FOR PAIN ORN ONCE PRIOR TO DC.
== END 2025-05-20 13:00 | disposition home health service (06) | DRG 872 ==
LOC: MEDS 11:30
PROVIDERS: Internal Medicine; ADMIT Student in an Organized Health Care Education/Training Program
DX: R78.81 Bacteremia (principal); G82.20 Paraplegia, unspecified; F11.20 Opioid dependence, uncomplicated; I50.20 Unspecified systolic (congestive) heart failure; B95.2 Enterococcus as the cause of diseases classified elsewhere; G89.4 Chronic pain syndrome; E87.6 Hypokalemia; N20.0 Calculus of kidney; D50.9 Iron deficiency anemia, unspecified; G35 Multiple sclerosis; F17.200 Nicotine dependence, unspecified, uncomplicated; F32.A Depression, unspecified; F41.9 Anxiety disorder, unspecified; G62.9 Polyneuropathy, unspecified; L89.159 Pressure ulcer of sacral region, unspecified stage; Z96.89 Presence of other specified functional implants; Z96.0 Presence of urogenital implants; Z74.01 Bed confinement status; Z87.440 Personal history of urinary (tract) infections
CPT/HCPCS: 36415; 80048; 80053; 80069; 85014; 85018; 85025; 87040; 93306; 97110; 97162; 97166; 97530; A9270; J0290; J1650; J3373; J7050; J7120

== ENCOUNTER → 2025-06-11 | Outpatient (CLI) | payer MEDICARE, OTHER ==
[~2025-06-11] MED LIST changes: +DOCU100 PO; +IBUP400 PO; +MIRALAX17 GM PO; +MORP15ER PO; +NITR100CA PO; +POTCHL20ER PO
[2025-06-11 15:12] LABS: Source, Urine Clean Catch
[2025-06-11 19:35] LABS: Bilirubin, Urine Neg (Neg); Color, Urine Brown (P-Yellow); Glucose Qualitative, Urine Neg (Neg); Ketones, Urine 1+ (Neg); Leukocyte Esterase, Urine 3+ (Neg); Protein, Urine 3+ (Neg); Specific Gravity, Urine 1.010 (1.003-1.022); Urobilinogen, Urine NORM (Normal)
[2025-06-11 20:07] LABS: Red Blood Cells, Urine 25-50 /hpf (0-2)
== END | disposition home or self-care (01) ==
LOC: LAB 06:40 → LAB SHORT 06:40
PROVIDERS: Internal Medicine
DX: Z09 Encounter for follow-up examination after completed treatment for conditions other than malignant neoplasm (principal); Z87.440 Personal history of urinary (tract) infections
CPT/HCPCS: 81001; 87077; 87086; 87186

== ENCOUNTER 2025-06-14 12:03 | Emergency (ER) | payer MEDICARE, OTHER ==
[~2025-06-14] VITALS: Ht 162.6 cm; Wt 59.0 kg
[2025-06-14] MEDS ORDERED: OxyCODONE 5 mg/Acetamin 325 mg TABLET PO ONE (14:20)
[2025-06-14] MEDS ORDERED: Ondansetron HCl 2 MG / ML 2ML Vial IV ONE (14:20)
[2025-06-14 14:30] LABS: BASOPHILS ABSOLUTE AUTO 0.03 K/mm3 (0.00-0.23); BASOPHILS PERCENT AUTO 0 % (0-2); EOSINOPHILS ABSOLUTE AUTO 0.07 K/mm3 (0.00-0.68); EOSINOPHILS PERCENT AUTO 1 % (0-6); Hematocrit 30.9 % (33.0-51.0); Hemoglobin 10.3 g/dL (11.5-16.0); IMMATURE GRAN ABSOLUTE AUTO 0.03 K/mm3 (0.00-0.10); IMMATURE GRAN PERCENT AUTO 0 % (0-1); LYMPHOCYTES ABSOLUTE AUTO 0.86 K/mm3 (0.84-5.20); LYMPHOCYTES PERCENT AUTO 10 % (21-46); MONOCYTES ABSOLUTE AUTO 0.52 K/mm3 (0.16-1.47); MONOCYTES PERCENT AUTO 6 % (4-13); Mean Corpuscular HGB Conc 33.3 g/dL (31.5-36.5); Mean Corpuscular Volume 100 fL (80-100); NEUTROPHILS ABSOLUTE AUTO 7.42 K/mm3 (1.96-9.15); NEUTROPHILS PERCENT AUTO 83 % (41-73); NRBC ABSOLUTE 0.00 K/mm3 (0.00-0.02); NRBC Auto 0.0 /100 WBC (0.0-0.2); Platelet Count 270 K/mm3 (150-400); RDW Coefficient Variation 12.5 % (11.7-14.2); RDW Standard Deviation 46.0 fL (35.1-46.3)
[2025-06-14 14:40] LABS: Alanine Aminotransfer (ALT/SGP 19.0 U/L (12-78); Albumin, Blood 3.0 g/dL (3.4-5.0); Albumin/Globulin Ratio 0.8 (0.8-1.8); Anion Gap 7.0 mmol/L (3-11); Aspartate Aminotrans (AST/SGOT 13.0 U/L (12-37); Bilirubin, Total 0.2 mg/dL (0.1-1.0); Blood Urea Nitrogen 8.0 mg/dL (8-24); CO2, Blood 29.0 mmol/L (21-32); Calcium, Blood 8.5 mg/dL (8.5-10.1); Chloride, Blood 106.0 mmol/L (98-108); Creatinine, Blood 0.55 mg/dL (0.40-1.00); Globulin, Blood 3.8 g/dL (2.2-4.0); Glucose, Blood 98.0 mg/dL (70-99); Potassium, Blood 3.6 mmol/L (3.5-5.5); Sodium, Blood 138.0 mmol/L (136-145); Total Protein, Blood 6.8 g/dL (6.4-8.2)
[2025-06-14] MEDS ORDERED: NS 1,000 ML IV SCH (15:20)
[2025-06-14] MEDS ORDERED: Percocet 5-3251 EACH PO (15:54)
[2025-06-14 17:30] VITALS: BP 116/85
== END 2025-06-14 17:46 | disposition home or self-care (01) ==
LOC: ER 12:03
PROVIDERS: Student in an Organized Health Care Education/Training Program
DX: N39.0 Urinary tract infection, site not specified (principal); N20.0 Calculus of kidney; E78.5 Hyperlipidemia, unspecified; F17.210 Nicotine dependence, cigarettes, uncomplicated
CPT/HCPCS: 80053; 83605; 83690; 85025; 93005; 93010; 96374; 99284-25; A9270; J2405; J7030

== ENCOUNTER 2025-07-24 21:53 | Emergency (ER) | payer MEDICARE, OTHER ==
[~2025-07-24] VITALS: Ht 162.6 cm; Wt 49.9 kg
[2025-07-24] MEDS ORDERED: Ondansetron 4 MG SoluTab SL ONE (22:35)
[2025-07-24 22:36] LABS: Source, Urine Foley catheter
[2025-07-24 22:50] LABS: Bilirubin, Urine Neg (Neg); Color, Urine Yellow (P-Yellow); Glucose Qualitative, Urine Neg (Neg); Ketones, Urine Neg (Neg); Leukocyte Esterase, Urine 3+ (Neg); Protein, Urine 3+ (Neg); Specific Gravity, Urine 1.015 (1.003-1.022); Urobilinogen, Urine NORM (Normal)
[2025-07-24 23:09] LABS: Red Blood Cells, Urine 25-50 /hpf (0-2)
[2025-07-24] MEDS ORDERED: BACTRIM DS TAB1 EAC1 PO (23:14)
[2025-07-24] MEDS ORDERED: Trimethoprim/Sulfamethoxazole DS Tab PO ONE (23:15)
[2025-07-24 23:27] VITALS: BP 100/70
[2025-07-29] MEDS ORDERED: CEFP200 PO (09:17)
== END 2025-07-25 02:39 | disposition home or self-care (01) ==
LOC: ER 21:53
PROVIDERS: Student in an Organized Health Care Education/Training Program
DX: T83.84XA Pain due to genitourinary prosthetic devices, implants and grafts, initial encounter (principal); N30.00 Acute cystitis without hematuria; I87.2 Venous insufficiency (chronic) (peripheral); G35.D Multiple sclerosis, unspecified; E78.5 Hyperlipidemia, unspecified; F17.210 Nicotine dependence, cigarettes, uncomplicated; Z87.442 Personal history of urinary calculi; Z99.3 Dependence on wheelchair; Z79.02 Long term (current) use of antithrombotics/antiplatelets; Z79.899 Other long term (current) drug therapy
CPT/HCPCS: 51702; 81001; 87077; 87086; 87186; 99283-25; A9270